=== PATIENT | male | born 1980 | race Caucasian/White ===

== ENCOUNTER → 2018-01-07 14:16 | Outpatient (REF) | payer MEDICARE, MEDICAID, SELFPAY ==
[2018-01-07 19:07] LABS: Glucose 73 mg/dL (70-100); TSH (W/Ref FT4) 0.68 uIU/mL (0.358-3.74)
== END ==
LOC: NCHCN 14:16
PROVIDERS: PCP Family Medicine; Visit Provider Family Medicine
DX: G71.11 Myotonic muscular dystrophy (principal); E78.5 Hyperlipidemia, unspecified
CPT/HCPCS: 82947; 84443

== ENCOUNTER 2018-11-11 18:27 | Inpatient (IN) | payer MEDICARE, MEDICAID, SELFPAY ==
[2018-11-11] VITALS (30 sets, daily range): BP systolic 102–132; BP diastolic 63–89; PULSE 61–127; RESP 16–20; TEMP 35.9–37.1; O2SAT 72–94
--- NOTE | 2018-11-11 19:02 | DI.CT_ITS ---
SYMPTOM/DIAGNOSIS: ABD PAIN LOWER ABD, TTP LLQ AND RLQ CT ABDOMEN AND PELVIS: Images were performed from the mid chest through the ischial tuberosities after oral and without IV contrast. There is a tiny pericardial effusion. There is mild cardiac enlargement. There is some dilatation of the distal esophagus as well as question of thickening of the wall of the distal esophagus. High density material is seen in the stomach. Shunt tubing is noted terminating in the upper abdomen. There is dilatation of the bowel with wall thickening seen greatest in the pelvis. No definite transition point is identified. The appendix appears normal. The colon is mainly decompressed. The findings are consistent with a partial small bowel obstruction. There is no evidence of free air or free fluid. Stones are seen in the gallbladder. There is no abnormal gallbladder distension. There is no biliary dilatation. The spleen, pancreas, adrenals and kidneys are unremarkable. The patient appears to be status post prostatectomy. The bladder is unremarkable. IMPRESSION: Dilated loops of bowel wall thickening suspicious for a bowel obstruction. There is no evidence of pneumatosis or perforation.
--- NOTE | 2018-11-11 19:04 | W.ED.GENAD ---
Discharge Plan Disposition Patient Disposition: [facility] INPATIENT Condition: Serious Discharge Details Chief Complaint: Abd Prob Clinical Impression: Small bowel obstruction Primary Care Provider: Sixto Tracy ED Provider: Mason Lucas Home Meds and New Rx's Prescriptions: No Action cholecalciferol (vitamin D3) 1,000 UNIT capsule 1,000 unit PO DAILY RF: 0 calcium carbonate [Tums] 200 MG tablet,chewable 2 - 4 tab CH Q4H PRNRF: 0 multivitamin 1 EACH capsule 1 ea PO DAILY RF: 0 aspirin [Ecotrin Low Strength] 81 MG tablet,delayed release (DR/EC) 81 mg PO DAILY RF: 0 polyethylene glycol 3350 17 GM powder in packet 17 gm PO DAILY RF: 0 Enema Disposable 133 ML enema 133 ml PA .EVERY 3 DAYS PRNRF: 0 docusate sodium [Colace] 100 MG capsule 100 mg PO BID PRNRF: 0 Medical Decision Making 19:58 --38-year-old male with multiple medical problems including history of myotonic dystrophy, prior bowel obstruction, presents with chief complaint of abdominal pain since yesterday. Patient is tender in his lower quadrants bilaterally. He had associated nausea. Consider acute bowel obstruction versus other acute surgical process. Plan to obtain stat CT imaging of the abdomen and pelvis. 9:00 --patient reassessed and noted to be hypoxic saturating in the upper 70s. Apparently he has had recent hypoxia (baseline 86-89%) and they are working on securing oxygen for home use. Low flow nasal cannula applied and pulse ox improved to mid 90. Will obtain cxr. CT of the abdomen pelvis interpreted by radiology: IMPRESSION: 1. Dilated thickened fluid-filled small bowel with enhancing wall consistent with small bowel obstruction. 2. Right intra-abdominal wall subcutaneous stent extending into the anterior mid abdomen with the tip located near the gallbladder fossa. 3. Bibasilar reticular markings consistent with atelectasis or developing infiltrate. 4. Cardiomegaly. Pericardial effusion. Prominent pulmonary vasculature. 5. Hiatal hernia with air-fluid level. 6. Tiny peripheral renal cysts. I spoke with the radiologist who noted small bowel obstruction. I called and spoke with Dr. Lakhani, on-call general surgery, who will admit. --Labs reviewed and nondiagnostic. Patient refusing NG tube. I reviewed risks and benefits with him and his mother and patient understands and refuses. Chest x-ray interpreted by radiology: Cardiomegaly, pulmonary vascular congestion, bibasilar markings consistent with atelectasis or developing infiltrate. No evidence for pleural effusion or pneumothorax. Patient does not have a cough. He does not have a fever. I do not suspect he has pneumonia. HPI General Mode of arrival: ambulatory. Date/Time Provider Initiated Documentation: 11/11/18 18:43. Limitations to Documentation: no limitations. Information obtained by: patient. HPI Narrative: 38-year-old male with multiple medical problems including myotonic dystrophy, paroxysmal atrial fibrillation, cardiomyopathy, hydrocephalus, bowel obstruction the past presents with chief complaint of abdominal pain. Abdominal pain started yesterday and has persisted. Pain is moderate. No modifiers. Pain is localized to his lower abdomen bilaterally. He has had associated nausea. Patient notes he had a normal bowel movement today. He has been urinating normally with no dysuria. Denies fever. Related Data Home Medications Medication Instructions Recorded Confirmed calcium carbonate [Tums] 2 - 4 tab CH Q4H PRN 09/18/12 11/11/18 multivitamin 1 ea PO DAILY 09/18/12 11/11/18 cholecalciferol (vitamin D3) 1,000 unit PO DAILY 10/14/12 11/11/18 Enema Disposable 133 ml PA .EVERY 3 DAYS PRN 04/15/14 11/11/18 aspirin [Ecotrin Low Strength] 81 mg PO DAILY 04/15/14 11/11/18 docusate sodium [Colace] 100 mg PO BID PRN 04/15/14 11/11/18 polyethylene glycol 3350 17 gm PO DAILY 04/15/14 11/11/18 Allergies Allergy/AdvReac Type Severity Reaction Status Date / Time promethazine Allergy MYOTONIC Unverified 11/11/18 18:52 DYSTROPY Benzodiazepines AdvReac Severe avoid d/t Unverified 11/11/18 18:52 myotonic dystrophy succinylcholine AdvReac Severe avoid d/y Unverified 11/11/18 18:52 myotonic dystrophy narcotics AdvReac Severe avoid d/t Uncoded 11/11/18 18:52 myotonic dystrophy General Stated Complaint: Abd Prob ARTEMIO: 3 Review of Systems Review of Systems All systems reviewed & are unremarkable except as noted in HPI and below Cardiovascular Denies chest pain Gastrointestinal Reports as per HPI, Denies melena and Denies hematochezia PFSH Medical History BASAL CELL Cardiomyopathy HYDROCEPHALUS Hyperlipidemia MYOTONIC DYSTROPHY Paroxysmal atrial fibrillation RUPTURED EARDRUM Right bundle branch block Social History Smoking/Tobacco Use Status: Never Alcohol Intake: never Drug use: Never Substance use type: does not use Do you feel safe in your relationship?: Yes Exam Const General: cooperative and no acute distress [facility] Head: normocephalic Mouth: mucous membranes dry Eyes Conjunctivae: normal conjunctivae Sclera: normal sclerae Neck Neck: trachea midline Resp Auscultation: clear to auscultation bilaterally, no rales, no rhonchi and no wheezes Cardio Jugular venous pressure: no JVD Rate: regular rate and not tachycardic Rhythm: abnormal rhythm GI Palpation: soft, not firm, no guarding, no masses, not rigid and tender in the LLQ and in the RLQ; with no rebound tenderness Auscultation: hypoactive bowel sounds Skin General skin exam: no rashes or lesions noted Neuro General: alert, awake and tone normal Extrem General: no edema Psych Mental Status: mental status grossly normal Speech and Movement: speech and movement normal Course Vital Signs Temperature 36.9 C 11/11/18 18:36 Pulse 74 11/11/18 18:36 Respiratory Rate 16 11/11/18 18:36 Blood Pressure 132/74 11/11/18 18:36 Pulse Oximetry 87 L 11/11/18 18:36 Temperature 36.9 C 11/11/18 18:36 Temperature Source Temporal Artery Scan 11/11/18 18:36 Pulse 74 11/11/18 18:36 Respiratory Rate 16 11/11/18 18:36 Respiratory Effort Non-Labored 11/11/18 18:52 Blood Pressure 132/74 11/11/18 18:36 Blood Pressure Position Sitting 11/11/18 18:36 Pulse Oximetry 87 L 11/11/18 18:36 Oxygen Delivery Method Room Air 11/11/18 18:36 Oxygen Flow Rate 0 11/11/18 18:36 Comment 11/11/18 18:36
[2018-11-11] MEDS: Normal Saline Flush 10 ML SYR IVP ×2 (19:14→22:19)
[2018-11-11] MEDS: Normal Saline 1,000 ML 1000 ML IV (19:14)
[2018-11-11 19:21] LABS: Abs Immature Grans 0.04 k/cumm (0.0-0.09); HGB 18.1 g/dL (13.5-17.5); Immature Grans % 0.3; Mean Corpuscular Hemoglobin 29.8 pg (27.0-33.0); Mean Corpuscular Volume 99.3 fL (80-95); Mean Platelet Volume 10.6 fL (8.0-11.0); Platelet Count 201 x1000/uL (130-400); RBC 6.08 m/cumm (4.50-6.00); RBC Distribution Width 18.1 % (11.8-14.1); White Blood Cell Count 12.09 k/cumm (4.4-10.8)
[2018-11-11 19:30] LABS: Lipase 37 U/L (73-393)
[2018-11-11 19:38] LABS: ALT 31 U/L (12-78); AST 16 U/L (15-37); Albumin 3.3 g/dL (3.4-5.0); Alkaline Phosphatase 83 U/L (46-116); Anion Gap 10.7 mmol/L (3-11); BUN 21 mg/dL (7-18); Bilirubin, Total 0.4 mg/dL (0.2-1.0); CO2 29.3 mmol/L (21.0-32.0); Calcium 9.7 mg/dL (8.5-10.1); Chloride 107 mmol/L (98-107); Glucose 120 mg/dL (70-100); Magnesium 2.3 mg/dL (1.8-2.4); Potassium 3.9 mmol/L (3.5-5.1); Sodium 147 mmol/L (136-145); Total Protein 8.3 g/dL (6.4-8.2)
[2018-11-11 19:43] LABS: Troponin I < 0.02 ng/mL (0.00-0.06)
--- NOTE | 2018-11-11 20:00 | ED.GENADUL_ITS ---
Discharge Plan Disposition Patient Disposition: [facility] INPATIENT Condition: Serious Discharge Details Chief Complaint: Abd Prob Clinical Impression: Small bowel obstruction Primary Care Provider: Sixto Tracy ED Provider: Mason Lucas Home Meds and New Rx's Prescriptions: No Action cholecalciferol (vitamin D3) 1,000 UNIT capsule 1,000 unit PO DAILY RF: 0 calcium carbonate [Tums] 200 MG tablet,chewable 2 - 4 tab CH Q4H PRNRF: 0 multivitamin 1 EACH capsule 1 ea PO DAILY RF: 0 aspirin [Ecotrin Low Strength] 81 MG tablet,delayed release (DR/EC) 81 mg PO DAILY RF: 0 polyethylene glycol 3350 17 GM powder in packet 17 gm PO DAILY RF: 0 Enema Disposable 133 ML enema 133 ml ID .EVERY 3 DAYS PRNRF: 0 docusate sodium [Colace] 100 MG capsule 100 mg PO BID PRNRF: 0 Medical Decision Making 19:58 --38-year-old male with multiple medical problems including history of myotonic dystrophy, prior bowel obstruction, presents with chief complaint of abdominal pain since yesterday. Patient is tender in his lower quadrants bilaterally. He had associated nausea. Consider acute bowel obstruction versus other acute surgical process. Plan to obtain stat CT imaging of the abdomen and pelvis. 9:00 --patient reassessed and noted to be hypoxic saturating in the upper 70s. Apparently he has had recent hypoxia (baseline 86-89%) and they are working on securing oxygen for home use. Low flow nasal cannula applied and pulse ox improved to mid 90. Will obtain cxr. CT of the abdomen pelvis interpreted by radiology: IMPRESSION: 1. Dilated thickened fluid-filled small bowel with enhancing wall consistent with small bowel obstruction. 2. Right intra-abdominal wall subcutaneous stent extending into the anterior mid abdomen with the tip located near the gallbladder fossa. 3. Bibasilar reticular markings consistent with atelectasis or developing infiltrate. 4. Cardiomegaly. Pericardial effusion. Prominent pulmonary vasculature. 5. Hiatal hernia with air-fluid level. 6. Tiny peripheral renal cysts. I spoke with the radiologist who noted small bowel obstruction. I called and spoke with Dr. Lakhani, on-call general surgery, who will admit. --Labs reviewed and nondiagnostic. Patient refusing NG tube. I reviewed risks and benefits with him and his mother and patient understands and refuses. Chest x-ray interpreted by radiology: Cardiomegaly, pulmonary vascular congestion, bibasilar markings consistent with atelectasis or developing infiltrate. No evidence for pleural effusion or pneumothorax. Patient does not have a cough. He does not have a fever. I do not suspect he has pneumonia. HPI General Mode of arrival: ambulatory . Date/Time Provider Initiated Documentation: 11/11/18 18:43 . Limitations to Documentation: no limitations . Information obtained by: patient . HPI Narrative: 38-year-old male with multiple medical problems including myotonic dystrophy, paroxysmal atrial fibrillation, cardiomyopathy, hydrocephalus, bowel obstruction the past presents with chief complaint of abdominal pain. Abdominal pain started yesterday and has persisted. Pain is moderate. No modifiers. Pain is localized to his lower abdomen bilaterally. He has had associated nausea. Patient notes he had a normal bowel movement today. He has been urinating normally with no dysuria. Denies fever. Related Data Home Medications Medication Instructions Recorded Confirmed calcium carbonate [Tums] 2 - 4 tab CH Q4H PRN 09/18/12 11/11/18 multivitamin 1 ea PO DAILY 09/18/12 11/11/18 cholecalciferol (vitamin D3) 1,000 unit PO DAILY 10/14/12 11/11/18 Enema Disposable 133 ml ID .EVERY 3 DAYS PRN 04/15/14 11/11/18 aspirin [Ecotrin Low Strength] 81 mg PO DAILY 04/15/14 11/11/18 docusate sodium [Colace] 100 mg PO BID PRN 04/15/14 11/11/18 polyethylene glycol 3350 17 gm PO DAILY 04/15/14 11/11/18 Allergies Allergy/AdvReac Type Severity Reaction Status Date / Time promethazine Allergy MYOTONIC Unverified 11/11/18 18:52 DYSTROPY Benzodiazepines AdvReac Severe avoid d/t Unverified 11/11/18 18:52 myotonic dystrophy succinylcholine AdvReac Severe avoid d/y Unverified 11/11/18 18:52 myotonic dystrophy narcotics AdvReac Severe avoid d/t Uncoded 11/11/18 18:52 myotonic dystrophy General Stated Complaint: Abd Prob ARTEMIO: 3 Review of Systems Review of Systems All systems reviewed & are unremarkable except as noted in HPI and below Cardiovascular Denies chest pain Gastrointestinal Reports as per HPI, Denies melena and Denies hematochezia PFSH Medical History BASAL CELL Cardiomyopathy HYDROCEPHALUS Hyperlipidemia MYOTONIC DYSTROPHY Paroxysmal atrial fibrillation RUPTURED EARDRUM Right bundle branch block Social History Smoking/Tobacco Use Status: Never Alcohol Intake: never Drug use: Never Substance use type: does not use Do you feel safe in your relationship?: Yes Exam Const General: cooperative and no acute distress [facility] Head: normocephalic Mouth: mucous membranes dry Eyes Conjunctivae: normal conjunctivae Sclera: normal sclerae Neck Neck: trachea midline Resp Auscultation: clear to auscultation bilaterally, no rales, no rhonchi and no wheezes Cardio Jugular venous pressure: no JVD Rate: regular rate and not tachycardic Rhythm: abnormal rhythm GI Palpation: soft, not firm, no guarding, no masses, not rigid and tender in the LLQ and in the RLQ; with no rebound tenderness Auscultation: hypoactive bowel sounds Skin General skin exam: no rashes or lesions noted Neuro General: alert, awake and tone normal Extrem General: no edema Psych Mental Status: mental status grossly normal Speech and Movement: speech and movement normal Course Vital Signs Temperature 36.9 C 11/11/18 18:36 Pulse 74 11/11/18 18:36 Respiratory Rate 16 11/11/18 18:36 Blood Pressure 132/74 11/11/18 18:36 Pulse Oximetry 87 L 11/11/18 18:36 Temperature 36.9 C 11/11/18 18:36 Temperature Source Temporal Artery Scan 11/11/18 18:36 Pulse 74 11/11/18 18:36 Respiratory Rate 16 11/11/18 18:36 Respiratory Effort Non-Labored 11/11/18 18:52 Blood Pressure 132/74 11/11/18 18:36 Blood Pressure Position Sitting 11/11/18 18:36 Pulse Oximetry 87 L 11/11/18 18:36 Oxygen Delivery Method Room Air 11/11/18 18:36 Oxygen Flow Rate 0 11/11/18 18:36 Comment 11/11/18 18:36
[2018-11-11 20:15] LABS: HCT 59.2 % (40.0-50.0)
[2018-11-11 20:17] LABS: Absolute Lymphocyte Count 0.85 k/cumm (1.2-3.4); Absolute Monocyte Count 0.97 k/cumm (0.11-0.7); Absolute Neutrophil Count 10.28 k/cumm (1.2-6.7); Anisocytosis 1+; Atypical Lymphocytes % 4; Polychromasia Present
[2018-11-11 20:18] LABS: Diff Comment Manual Differential
--- NOTE | 2018-11-11 20:54 | DI.VRAD_ITS ---
Addendum created by Katerina Downs MD on 11/11/2018 8:58:15 PM EDT THIS REPORT CONTAINS FINDINGS THAT MAY BE CRITICAL TO PATIENT CARE. The findings were verbally communicated via telephone conference with JAZZY MARCOS at 8:57 PM EDT on 11/11/2018. The findings were acknowledged and understood. Initial report created on 11/11/2018 8:54:04 PM EDT EXAM: CT Abdomen and Pelvis With Contrast EXAM DATE/TIME: 11/11/2018 7:04 PM CLINICAL HISTORY: 38 years old, male; Localized; Prior surgery; Surgery date: 6+ months; Surgery type: Shunt; Patient HX: Lower abdominal pain and tenderness, HX of myotonic dystrophy TECHNIQUE: Imaging protocol: Axial computed tomography images of the abdomen and pelvis with intravenous contrast. Coronal and sagittal reformatted images were created and reviewed. Radiation optimization: All CT scans at this facility use at least one of these dose optimization techniques: automated exposure control; mA and/or kV adjustment per patient size (includes targeted exams where dose is matched to clinical indication); or iterative reconstruction. Contrast material: OMNIPAQUE 350; Contrast volume: 100 ml; Contrast route: IV; COMPARISON: No relevant prior studies available. FINDINGS: Lungs: There is prominence of the pulmonary vasculature with increased bibasilar reticular markings consistent with atelectasis or developing infiltrate versus. Heart: The heart is enlarged diffusely with a pericardial effusion. Mediastinum: There is a small hiatal hernia with a small air-fluid level. ABDOMEN: Liver: Normal. No mass. Gallbladder and bile ducts: There is mild intrahepatic biliary duct prominence. The gallbladder is distended and contains a curvilinear calcification suspicious for gallstone. Pancreas: Normal. No ductal dilation. Spleen: Normal. No splenomegaly. Adrenals: Normal. No mass. Kidneys and ureters: Tiny peripheral hypodensities in the periphery of the kidneys consistent with renal cysts. Stomach and bowel: The stomach contains food products and radiopaque densities possibly representing residual cells. The small bowel is dilated with enhancing thickened folds. The appendix is unremarkable. The terminal ileum is normal. The right colon is fluid distended with thickened lorenz. Appendix: See Stomach And Bowel Finding. PELVIS: Bladder: Unremarkable as visualized. Reproductive: Multiple calcifications in the floor of the bladder and involving the base of the prostate. ABDOMEN and PELVIS: Intraperitoneal space: Normal. No free air. No significant fluid collection. Bones/joints: No acute fracture. No dislocation. Soft tissues: There is a subcutaneous stent in the soft tissues of the lower right chest which extends into the mid upper abdomen. The tip is seen near the gallbladder fossa. Vasculature: Normal. No abdominal aortic aneurysm. Lymph nodes: Normal. No enlarged lymph nodes. IMPRESSION: 1. Dilated thickened fluid-filled small bowel with enhancing wall consistent with small bowel obstruction. 2. Right intra-abdominal wall subcutaneous stent extending into the anterior mid abdomen with the tip located near the gallbladder fossa. 3. Bibasilar reticular markings consistent with atelectasis or developing infiltrate. 4. Cardiomegaly. Pericardial effusion. Prominent pulmonary vasculature. 5. Hiatal hernia with air-fluid level. 6. Tiny peripheral renal cysts. Dictated and Authenticated by: Katerina Downs MD. Ordering:KAMALA Cuevas MD
[2018-11-11] MEDS: Omnipaque 350 MG/ML 100 ML BTL IJ (21:00)
--- NOTE | 2018-11-11 21:03 | DI.RAD_ITS ---
SYMPTOM/DIAGNOSIS: HYPOXIA AP AND LATERAL CHEST: Comparison is made with 29 Mar 2017. The heart is enlarged, not significantly changed. [employer] shunt tubing is again noted. Both views are quite suboptimal due to poor pulmonary inflation. There are increased densities at both lung bases which could reflect atelectasis or infiltrates. There may also be tiny pleural effusions. IMPRESSION: Cardiomegaly. Bibasilar infiltrates vs atelectasis.
--- NOTE | 2018-11-11 21:18 | HPE_ITS ---
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 Pt is normally a very good eater. Would not eat lunch on 11/11 and was very tired. Has a hx of sbo. no unusual activities or recent illness. no fever/chills. He started to have abdom pain last evening and caregiver brought him to ED. CT reviewed. He would not let them place an NGT. Today he is feeling better- less pain. Chart reviewed. MPRESSION: 1. Dilated thickened fluid-filled small bowel with enhancing wall consistent with small bowel obstruction. 2. Right intra-abdominal wall subcutaneous stent extending into the anterior mid abdomen with the tip located near the gallbladder fossa. 3. Bibasilar reticular markings consistent with atelectasis or developing infiltrate. 4. Cardiomegaly. Pericardial effusion. Prominent pulmonary vasculature. 5. Hiatal hernia with air-fluid level. 6. Tiny peripheral renal cysts. Severe restrictive lung disease. Clinical correlation is recommended. When this study was compared to previous ones from 10/11/12 and 01/20/13, the patient's FVC had an overall 320 cc. decline, FEV-1 had a 310 cc. decline. Diffusion capacity is fairly stable. Total lung capacity had a 300 cc. decline in the four years. One of the alarcon points for differential diagnosis for this constellation of findings is parenchymal restrictive lung disease versus respiratory neuromuscular weakness. If the latter is suspected clinically, proceeding with MEP, MIP, and MVV maneuvers may be considered. PROBLEM LIST: Acute Problems: 1. Vomiting - ileus versus distal small bowel obstruction. 2. Hypoventilation secondary to muscle weakness. Chronic Problems: 1. Myotonic dystrophy. 2. Velopalatine insufficiency. 3. Bilateral chronic tympanic membrane perforations. 4. Cardiomyopathy. a. EF 50%, mild global hypokinesis on echocardiogram. 5. Right bundle-branch block. 6. First-degree AV block. 7. Bilateral cataracts. 8. History of hydrocephalus. 9. Past surgical history: a. MOLDING ASSOCIATE shunt. b. PE tubes. c. Lysis of adhesions. Review of Systems Review of Systems Unobtainable due to mental condition and Unobtainable due to (taken from chart and caregiver ) Respiratory Comments: pt is suppose to be on home O2, but he won't wear it. He does have a Hx of some aspiration issues. Caregiver hasnt noticed him coughing or gaggin w/ eating or drinking. Gastrointestinal Comments: unclear when last BM was. Has had laparotomy in past. 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 ASSOCIATE (ventriculoperitoneal) shunt status (Acute) Gallstones (Acute) Small bowel obstruction (Acute) BASAL CELL Cardiomyopathy HYDROCEPHALUS Hyperlipidemia MYOTONIC DYSTROPHY Paroxysmal atrial fibrillation RUPTURED EARDRUM Right bundle branch block Social History Smoking/Tobacco Use Status: Never Alcohol Intake: never Drug use: Never Substance use type: does not use Do you feel safe in your relationship?: Yes Meds Home Medications Medication Instructions Recorded Confirmed Type calcium carbonate [Tums] 2 - 4 tab CH Q4H PRN 09/18/12 11/11/18 History multivitamin 1 ea PO DAILY 09/18/12 11/11/18 History cholecalciferol (vitamin D3) 1,000 unit PO DAILY 10/14/12 11/11/18 History Enema Disposable 133 ml OR .EVERY 3 DAYS PRN 04/15/14 11/11/18 History aspirin [Ecotrin Low Strength] 81 mg PO DAILY 04/15/14 11/11/18 History docusate sodium [Colace] 100 mg PO BID PRN 04/15/14 11/11/18 History polyethylene glycol 3350 17 gm PO DAILY 04/15/14 11/11/18 History Allergies Allergy/AdvReac Type Severity Reaction Status Date / Time promethazine Allergy MYOTONIC Unverified 11/11/18 18:52 DYSTROPY Benzodiazepines AdvReac Severe avoid d/t Unverified 11/11/18 18:52 myotonic dystrophy succinylcholine AdvReac Severe avoid d/y Unverified 11/11/18 18:52 myotonic dystrophy narcotics AdvReac Severe avoid d/t Uncoded 11/11/18 18:52 myotonic dystrophy Exam [facility] Head: normal to inspection and other (scarring noted ) Ears: hearing grossly normal bilaterally General nose exam: external nose normal Face and sinus: normal facial exam Mouth: oral mucosae normal Teeth and gingiva: fair dentition Other: micronathia Eyes Eyelids: eyelid abnormality Conjunctivae: conjunctivae normal Sclera: sclerae normal Chest Chest: normal inspection of the chest Resp Effort & Inspection: normal respiratory effort and able to speak in complete sentences Auscultation: clear to auscultation bilaterally Other: low O2- chronic pt suppose to be on home O2, but won't wear it GI Inspection: distended and scar Auscultation: high-pitched sounds Other: no peritonitis post sx changes noted no hernias Extrem General: normal to inspection, full ROM and no clubbing, cyanosis or edema Results Labs : 11/12/18 07:50 11/12/18 06:07 Laboratory Results - last 24 hr 11/11/18 11/11/18 11/11/18 19:10 19:10 19:10 WBC 12.09 H RBC 6.08 H Hgb 18.1 H Hct 59.2 H* MCV 99.3 H MCH 29.8 MCHC 30.0 L RDW 18.1 H Plt Count 201 MPV 10.6 Immature Gran % 0.3 Neutrophils % 85.0 Band Neutrophils % 0.0 Lymphocytes % 3.0 Atypical Lymphs % 4 Monocytes % 8.0 Eosinophils % 0.0 Basophils % 0.0 Absolute Neutrophils 10.28 H Absolute Lymphocytes 0.85 L Absolute Monocytes 0.97 H Absolute Eosinophils 0.00 Absolute Basophils 0.00 Differential Comment Manual differential RBC Morphology See below Polychromasia Present Anisocytosis 1+ Sodium 147 H Potassium 3.9 Chloride 107 Carbon Dioxide 29.3 Anion Gap 10.7 BUN 21 H Creatinine 0.90 Estimated GFR/1.73 m2 >= 60.00 Glucose 120 H Calcium 9.7 Magnesium 2.3 Total Bilirubin 0.4 AST 16 ALT 31 Alkaline Phosphatase 83 Troponin I < 0.02 Total Protein 8.3 H Albumin 3.3 L Lipase 37 L Last Vital Signs Temp 37.0 C 11/11/18 20:29 Pulse 61 11/11/18 20:29 Resp 20 11/11/18 20:29 BP 131/89 11/11/18 20:29 Pulse Ox 94 L 11/11/18 20:33
--- NOTE | 2018-11-11 21:32 | DI.VRAD_ITS ---
EXAM: XR Chest, 2 Views EXAM DATE/TIME: 11/11/2018 9:03 PM CLINICAL HISTORY: 38 years old, male; Signs and symptoms; Other: Hypoxia TECHNIQUE: Imaging protocol: XR of the chest, 2 views. COMPARISON: CR CHEST 2 VIEWS PA,LAT 07/08/2016 10:15 FINDINGS: Tubes, catheters and devices: There is a catheter overlying the right chest extending to the midline of the upper abdomen. Lungs: There is enlargement of the central pulmonary vessels with redistribution to the apices. The lung volumes are low. There is increased bibasilar markings consistent with atelectasis or developing infiltrate. There is no evidence for pleural effusion on the CT or chest x-ray. Pleural space: There is no pneumothorax. Heart/Mediastinum: The heart is enlarged. On CT there was a pericardial effusion. Bones/joints: Unremarkable. IMPRESSION: Cardiomegaly. Pulmonary vascular congestion. Bibasilar markings consistent with atelectasis or developing infiltrate. No evidence for pleural effusion or pneumothorax. Dictated and Authenticated by: Katerina Downs MD. Ordering:KAMALA Cuevas MD
[2018-11-11] MEDS: Lactated Ringers 1,000 ML 125 ML IV (22:19)
--- NOTE | 2018-11-11 22:52 | NUR.NOTE ---
Nursing Note: Pt requesting nasal cannula to be removed at this time I cant sleep like this. Pt educated on low oxygen levels during stay, pt requested it to be removed. Nasal cannula removed at this time while nursing in room for a trial on room air- desating down to 83%- Pt educated that MD would like pt to stay at or above 89%- pt allowed nasal cannula to be put back on. O2 currently @ 3L/min- O2 returned back to 88% quickly w/a few deep breathes.
[2018-11-12] MEDS: cefTRIAXone 2 GM/50 ML BAG IVPB (01:05)
[2018-11-12] MEDS: Lactated Ringers 1,000 ML 125 ML IV ×3 (03:49→19:11)
[2018-11-12 07:16] LABS: Anion Gap 6.9 mmol/L (3-11); BUN 13 mg/dL (7-18); CO2 28.1 mmol/L (21.0-32.0); CREATININE 0.61 mg/dL (0.70-1.30); Calcium 8.7 mg/dL (8.5-10.1); Chloride 109 mmol/L (98-107); Glucose 103 mg/dL (70-100); Magnesium 2.2 mg/dL (1.8-2.4); Sodium 144 mmol/L (136-145)
--- NOTE | 2018-11-12 07:27 | PGE_ITS ---
Documented by User: CARLIE Alamo 11/12/18 07:27 Date of Service Date of service: 11/12/18 Time of Service: 07:24 Assessment and Plan (1) Small bowel obstruction: Current visit: Yes Status: Acute Patient refused NG tube. DIET- Continue NPO GI- hypoactive bowel sounds, (-) BM, (-) Flatus PAIN- Improved over night. ACTIVITY- Encouraged ambulation later this morning. ABD XRAY pending Subjective Interval history since last seen: Arrived with Mr. Mcfarland sleeping comfortably and his healthcare administration intern at the bedside. Denies any nausea, vomiting or abdominal pain. Denies passing any flatus. No BM. He reports that he is feeling better compared to last night, however expresses that he is very tired today. Exam Const General: cooperative and comfortable Orientation: alert and oriented x3 Resp Effort & Inspection: normal respiratory effort, no audible wheezes and no cough GI Inspection: normal to inspection and obesity Palpation: soft, no guarding and nontender Auscultation: hypoactive bowel sounds Objective Objective Clinical Data: Abnormal lab results 11/11/18 11/11/18 11/11/18 Range/Units 19:10 19:10 19:10 WBC 12.09 H (4.4-10.8) k/cumm RBC 6.08 H (4.50-6.00) m/cumm Hgb 18.1 H (13.5-17.5) g/dL Hct 59.2 H* (40.0-50.0) % MCV 99.3 H (80-95) fL MCHC 30.0 L (32.0-36.0) g/dL RDW 18.1 H (11.8-14.1) % Absolute Neutrophils 10.28 H (1.2-6.7) k/cumm Absolute Lymphocytes 0.85 L (1.2-3.4) k/cumm Absolute Monocytes 0.97 H (0.11-0.7) k/cumm Sodium 147 H (136-145) mmol/L Chloride (98-107) mmol/L BUN 21 H (7-18) mg/dL Creatinine (0.70-1.30) mg/dL Glucose 120 H (70-100) mg/dL Total Protein 8.3 H (6.4-8.2) g/dL Albumin 3.3 L (3.4-5.0) g/dL Lipase 37 L (73-393) U/L 11/12/18 Range/Units 06:07 WBC (4.4-10.8) k/cumm RBC (4.50-6.00) m/cumm Hgb (13.5-17.5) g/dL Hct (40.0-50.0) % MCV (80-95) fL MCHC (32.0-36.0) g/dL RDW (11.8-14.1) % Absolute Neutrophils (1.2-6.7) k/cumm Absolute Lymphocytes (1.2-3.4) k/cumm Absolute Monocytes (0.11-0.7) k/cumm Sodium (136-145) mmol/L Chloride 109 H (98-107) mmol/L BUN (7-18) mg/dL Creatinine 0.61 L (0.70-1.30) mg/dL Glucose 103 H (70-100) mg/dL Total Protein (6.4-8.2) g/dL Albumin (3.4-5.0) g/dL Lipase (73-393) U/L Vital Signs Temperature 35.9 C L 11/11/18 23:45 Temperature Source Tympanic 11/11/18 23:44 Pulse 90 11/11/18 23:45 Respiratory Rate 20 11/11/18 23:45 Respiratory Effort 11/11/18 23:45 Respiratory Depth Normal 11/11/18 23:45 Respiratory Pattern Normal 11/11/18 23:45 Blood Pressure 111/71 11/11/18 23:45 Blood Pressure Mean 93 11/11/18 23:16 Blood Pressure Position Sitting 11/11/18 18:36 Pulse Oximetry 91 L 11/11/18 23:45 Oxygen Delivery Method Nasal Cannula 11/11/18 23:45 Oxygen Flow Rate 3 11/11/18 23:45 Comment 11/11/18 18:36 Intake & Output 11/11/18 11/12/18 11/12/18 18:59 06:59 18:59 Intake Total 2049 Balance 2049 Weight 81.193 kg 81.193 kg Intake: IV 2049 Other: Urine Appearance Clear Comment pt refused Kruger catheter, voiding adequate amount Laboratory Results WBC 12.09 k/cumm (4.4-10.8) H 11/11/18 19:10 RBC 6.08 m/cumm (4.50-6.00) H 11/11/18 19:10 Hgb 18.1 g/dL (13.5-17.5) H 11/11/18 19:10 Hct 59.2 % (40.0-50.0) H* 11/11/18 19:10 MCV 99.3 fL (80-95) H 11/11/18 19:10 MCH 29.8 pg (27.0-33.0) 11/11/18 19:10 MCHC 30.0 g/dL (32.0-36.0) L 11/11/18 19:10 RDW 18.1 % (11.8-14.1) H 11/11/18 19:10 Plt Count 201 x1000/uL (130-400) 11/11/18 19:10 MPV 10.6 fL (8.0-11.0) 11/11/18 19:10 Immature Gran % 0.3 11/11/18 19:10 Neutrophils % 85.0 11/11/18 19:10 Band Neutrophils % 0.0 % 11/11/18 19:10 Lymphocytes % 3.0 11/11/18 19:10 Atypical Lymphs % 4 11/11/18 19:10 Monocytes % 8.0 11/11/18 19:10 Eosinophils % 0.0 11/11/18 19:10 Basophils % 0.0 11/11/18 19:10 Absolute Neutrophils 10.28 k/cumm (1.2-6.7) H 11/11/18 19:10 Absolute Lymphocytes 0.85 k/cumm (1.2-3.4) L 11/11/18 19:10 Absolute Monocytes 0.97 k/cumm (0.11-0.7) H 11/11/18 19:10 Absolute Eosinophils 0.00 k/cumm (0.0-0.7) 11/11/18 19:10 Absolute Basophils 0.00 k/cumm (0.0-0.2) 11/11/18 19:10 Differential Comment Manual differential 11/11/18 19:10 RBC Morphology See below 11/11/18 19:10 Polychromasia Present 11/11/18 19:10 Anisocytosis 1+ 11/11/18 19:10 Sodium 144 mmol/L (136-145) 11/12/18 06:07 Potassium 4.0 mmol/L (3.5-5.1) 11/12/18 06:07 Chloride 109 mmol/L (98-107) H 11/12/18 06:07 Carbon Dioxide 28.1 mmol/L (21.0-32.0) 11/12/18 06:07 Anion Gap 6.9 mmol/L (3-11) 11/12/18 06:07 BUN 13 mg/dL (7-18) D 11/12/18 06:07 Creatinine 0.61 mg/dL (0.70-1.30) L 11/12/18 06:07 Estimated GFR/1.73 m2 >= 60.00 (mL/min/1.73m2) 11/12/18 06:07 Glucose 103 mg/dL (70-100) H 11/12/18 06:07 Calcium 8.7 mg/dL (8.5-10.1) 11/12/18 06:07 Magnesium 2.2 mg/dL (1.8-2.4) 11/12/18 06:07 Total Bilirubin 0.4 mg/dL (0.2-1.0) 11/11/18 19:10 AST 16 U/L (15-37) 11/11/18 19:10 ALT 31 U/L (12-78) 11/11/18 19:10 Alkaline Phosphatase 83 U/L (46-116) 11/11/18 19:10 Troponin I < 0.02 ng/mL (0.00-0.06) 11/11/18 19:10 Total Protein 8.3 g/dL (6.4-8.2) H 11/11/18 19:10 Albumin 3.3 g/dL (3.4-5.0) L 11/11/18 19:10 Lipase 37 U/L (73-393) L 11/11/18 19:10 Documented by User: Amna M Lesvia, 11/12/18 18:51 Assessment and Plan (1) Small bowel obstruction: Current visit: Yes Status: Acute pt seen and examined this evening He did fall this afternoon while walking. RN says he's BP was stable and he had no hypotension or arrhythmia. He has a mild abrasion on his LLE. no swelling. no s/s of fracture. He has been up walking since. He denies n/v. no fever/chills. says he has passed some gas. listening to his abdomen- BS are still high pitched and tinkley. no peritonitis post sx changes noted. no pain at this point.
[2018-11-12 08:03] LABS: Platelet Count 189 x1000/uL (130-400)
--- NOTE | 2018-11-12 08:20 | PDOC.CMIN ---
Care Management Initial Assess REASON FOR HOSPITALIZATION:: SBO PAST MEDICAL HISTORY/PAST SURGICAL HISTORY:: Basal Cell, Cardiomyopathy, Hydrocephalus, Hyperlipidemia, Myotonic Dystrophy, Paroxysmal atrial fibrillation, right bundle branch block, ruptured eardrum PREVIOUS FUNCTIONAL STATUS/SOCIAL/FAMILY SUPPORTS:: Julio Cesar resides in [place], [place] in a shared living long-term through [facility]. He reports his home provider's name is Teresa. His guardian is Nhi Huitron and his skilled nursing case manager is Alba. Julio Cesar reports he is on disability and does not work, he enjoys discussing the zodiac with this commercial lines underwriter and appears well engaged. CURRENT FUNCTIONAL STATUS:: Julio Cesar was sitting up in the chair, pleasant in interaction and forthcoming in information. ADVANCE DIRECTIVES:: Guardian Nhi Huitron. Has patient been provided with information about the portal?: Yes Did the patient sign up for the portal?: No CODE STATUS:: Full Code INSURANCE COVERAGE / FINANCIAL ISSUES:: Medicaid. Medicare CURRENT HOME/COMMUNITY SERVICES/EQUIPMENT:: IDDS services through [place] Supports-case management, home provider, guardianship. PRIMARY CARE PHYSICIAN:: Dr. Tracy POTENTIAL DISCHARGE NEEDS:: Follow up appointment with PCP. PATIENT/FAMILY EDUCATION NEEDS:: Review discharge instructions, discuss Ask Me Three. ANTICIPATED BARRIERS TO DISCHARGE:: None identified. TRANSPORTATION:: Via private vehicle. PLAN:: Per Surgical HEATING ENGINEER: Julio Cesar has refused an NG tube, continues to be NPO on IV ABX and medications. He is being encouraged to ambulate, awaiting abdominal xray results. CM will continue to follow.
--- NOTE | 2018-11-12 08:27 | INITIAL_ITS ---
Care Management Initial Assess REASON FOR HOSPITALIZATION:: SBO PAST MEDICAL HISTORY/PAST SURGICAL HISTORY:: Basal Cell, Cardiomyopathy, Hydrocephalus, Hyperlipidemia, Myotonic Dystrophy, Paroxysmal atrial fibrillation, right bundle branch block, ruptured eardrum PREVIOUS FUNCTIONAL STATUS/SOCIAL/FAMILY SUPPORTS:: Julio Cesar resides in [place], [place] in a shared living halfway through [facility]. He reports his home provider's name is Teresa. His guardian is Nhi Huitron and his rn field case manager is Alba. Julio Cesar reports he is on disability and does not work, he enjoys discussing the zodiac with this health underwriter and appears well engaged. CURRENT FUNCTIONAL STATUS:: Julio Cesar was sitting up in the chair, pleasant in interaction and forthcoming in information. ADVANCE DIRECTIVES:: Guardian Nhi Huitron. Has patient been provided with information about the portal?: Yes Did the patient sign up for the portal?: No CODE STATUS:: Full Code INSURANCE COVERAGE / FINANCIAL ISSUES:: Medicaid. Medicare CURRENT HOME/COMMUNITY SERVICES/EQUIPMENT:: IDDS services through [place] Supports-case management, home provider, guardianship. PRIMARY CARE PHYSICIAN:: Dr. Tracy POTENTIAL DISCHARGE NEEDS:: Follow up appointment with PCP. PATIENT/FAMILY EDUCATION NEEDS:: Review discharge instructions, discuss Ask Me Three. ANTICIPATED BARRIERS TO DISCHARGE:: None identified. TRANSPORTATION:: Via private vehicle. PLAN:: Per Surgical TRACK REPAIR SUPERVISOR: Julio Cesar has refused an NG tube, continues to be NPO on IV ABX and medications. He is being encouraged to ambulate, awaiting abdominal xray results. CM will continue to follow.
[2018-11-12 09:00] VITALS: BP 108/66; PULSE 72; RESP 18; TEMP 36.3; O2SAT 89
--- NOTE | 2018-11-12 09:36 | DI.RAD_ITS ---
SYMPTOM/DIAGNOSIS: INFILTRATE ON CT SCA PA AND LATERAL CHEST: Comparison is made with November 13 The lungs are somewhat better inflated on today's exam however still remain suboptimally inflated. Cardiomegaly and CARPET TECHNICIAN shunt tubing are again noted. There is a linear density at the right lung base. The lung bases appear clear when compared with the previous exam. IMPRESSION: Improvement in bibasilar densities.
--- NOTE | 2018-11-12 09:38 | DI.RAD_ITS ---
SYMPTOM/DIAGNOSIS: SBO FLAT AND UPRIGHT ABDOMEN: Comparison is made with CT of the abdomen and pelvis of the previous day. There is continued dilatation of multiple loops of small bowel as well as air fluid levels. No free air is seen. The lung bases are grossly clear. There is contrast in the urinary bladder from the previous CT. IMPRESSION: Persistent dilated small bowel.
[2018-11-12 10:00] VITALS: O2SAT 83
[2018-11-12] MEDS: ACETAMINOPHEN 1,000 MG/100 ML BTL 400 MG IVPB (10:42)
[2018-11-12 13:00] LABS: Lactate-non-spesis 0.7 mmol/l (0.6-1.4)
[2018-11-12 13:49] VITALS: BP 104/74; PULSE 70; RESP 18; TEMP 36.7; O2SAT 87
[2018-11-12 15:08] VITALS: BP 101/70; PULSE 107; RESP 18; TEMP 36.7; O2SAT 88
--- NOTE | 2018-11-12 15:39 | CHAPLAIN ---
Julio Cesar was sitting up in bed, waiting for his pain medicine to kick in, according to his caregiver who had spent the night with him. Julio Cesar seemed to be being patient. His caregiver said she has known him for 20 years, and she plans to stay here with him. She said she massaged his hand earlier in an attept to sooth him
[2018-11-12 19:14] VITALS: BP 118/76; PULSE 80; RESP 14; TEMP 36; O2SAT 89
[2018-11-13] VITALS (11 sets, daily range): BP systolic 120–133; BP diastolic 79–85; PULSE 77–88; RESP 2–18; TEMP 36.5–36.8; O2SAT 78–98
[2018-11-13] MEDS: cefTRIAXone 2 GM/50 ML BAG IVPB ×2 (00:03→23:30)
[2018-11-13] MEDS: Normal Saline Flush 10 ML SYR IVP ×2 (00:04→10:05)
[2018-11-13] MEDS: Lactated Ringers 1,000 ML 125 ML IV ×3 (03:14→17:40)
[2018-11-13] MEDS: ACETAMINOPHEN 1,000 MG/100 ML BTL 400 MG IVPB ×2 (03:50→17:40)
[2018-11-13 07:29] LABS: Anion Gap 5.6 mmol/L (3-11); BUN 8 mg/dL (7-18); CO2 30.4 mmol/L (21.0-32.0); CREATININE 0.72 mg/dL (0.70-1.30); Calcium 8.7 mg/dL (8.5-10.1); Chloride 109 mmol/L (98-107); Glucose 92 mg/dL (70-100); Magnesium 2.1 mg/dL (1.8-2.4); Potassium 3.6 mmol/L (3.5-5.1); Sodium 145 mmol/L (136-145)
--- NOTE | 2018-11-13 07:29 | W.PM.PROGNOT ---
Documented by User: CARLIE Alamo 11/13/18 07:34 Date of Service Date of service: 11/13/18 Time of Service: 07:29 Assessment and Plan (1) Small bowel obstruction: Current visit: Yes Status: Acute Hypoactive bowel sounds. ABD is less tender on palpation today. Mr. Mcfarland is very tired, responds verbally to questions appropriately, however did not open his eyes while conversing with this provider. DIET- Continue NPO ACT- As tolerated. Encourage amb. and sitting in the chair throughout the day. ABD XRAY- Pending PAIN- Denies abdominal pain ? Of BM, nsg was not able to confirm this. Subjective Interval history since last seen: Patient reports he is very tired. He denies any abdominal pain, nausea or vomiting. He reports having a BM, however nsg was not able to confirm this. Exam Const General: cooperative, healthy appearing and comfortable Orientation: alert and awake Resp Effort & Inspection: normal respiratory effort, no audible wheezes and no cough GI Inspection: normal to inspection and obesity Palpation: soft, no guarding and nontender Auscultation: hypoactive bowel sounds Objective Objective Clinical Data: Vital Signs Temperature 36 C L 11/12/18 19:14 Temperature Source Tympanic 11/12/18 19:14 Pulse 80 11/12/18 19:14 Pulse Rhythm Regular 11/12/18 23:06 Respiratory Rate 14 11/12/18 19:14 Respiratory Effort 11/12/18 23:06 Respiratory Depth Normal 11/12/18 23:06 Respiratory Pattern Normal 11/12/18 23:06 Blood Pressure 118/76 11/12/18 19:14 Blood Pressure Mean 93 11/11/18 23:16 Blood Pressure Position Sitting 11/11/18 18:36 Pulse Oximetry 89 L 11/12/18 19:14 Oxygen Delivery Method Room Air 11/12/18 19:14 Oxygen Flow Rate 0 11/12/18 19:14 Pain Level 5 11/13/18 03:50 Comment 11/12/18 19:14 Intake & Output 11/12/18 11/13/18 11/13/18 18:59 06:59 18:59 Intake Total 1070.833 / 3110.416 2039.583 / 3110.416 Balance 1070.833 / 3110.416 2039.583 / 3110.416 Intake: IV 1070.833 / 3110.416 2039.583 / 3110.416 Other: Urine Color Yellow Urine Appearance Clear Stool Characteristics Liquid Brown Voiding Methods Toilet Laboratory Results WBC 12.09 k/cumm (4.4-10.8) H 11/11/18 19:10 RBC 6.08 m/cumm (4.50-6.00) H 11/11/18 19:10 Hgb 18.1 g/dL (13.5-17.5) H 11/11/18 19:10 Hct 59.2 % (40.0-50.0) H* 11/11/18 19:10 MCV 99.3 fL (80-95) H 11/11/18 19:10 MCH 29.8 pg (27.0-33.0) 11/11/18 19:10 MCHC 30.0 g/dL (32.0-36.0) L 11/11/18 19:10 RDW 18.1 % (11.8-14.1) H 11/11/18 19:10 Plt Count 189 x1000/uL (130-400) 11/12/18 07:50 MPV 10.6 fL (8.0-11.0) 11/11/18 19:10 Immature Gran % 0.3 11/11/18 19:10 Neutrophils % 85.0 11/11/18 19:10 Band Neutrophils % 0.0 % 11/11/18 19:10 Lymphocytes % 3.0 11/11/18 19:10 Atypical Lymphs % 4 11/11/18 19:10 Monocytes % 8.0 11/11/18 19:10 Eosinophils % 0.0 11/11/18 19:10 Basophils % 0.0 11/11/18 19:10 Absolute Neutrophils 10.28 k/cumm (1.2-6.7) H 11/11/18 19:10 Absolute Lymphocytes 0.85 k/cumm (1.2-3.4) L 11/11/18 19:10 Absolute Monocytes 0.97 k/cumm (0.11-0.7) H 11/11/18 19:10 Absolute Eosinophils 0.00 k/cumm (0.0-0.7) 11/11/18 19:10 Absolute Basophils 0.00 k/cumm (0.0-0.2) 11/11/18 19:10 Differential Comment Manual differential 11/11/18 19:10 RBC Morphology See below 11/11/18 19:10 Polychromasia Present 11/11/18 19:10 Anisocytosis 1+ 11/11/18 19:10 Sodium 144 mmol/L (136-145) 11/12/18 06:07 Potassium 4.0 mmol/L (3.5-5.1) 11/12/18 06:07 Chloride 109 mmol/L (98-107) H 11/12/18 06:07 Carbon Dioxide 28.1 mmol/L (21.0-32.0) 11/12/18 06:07 Anion Gap 6.9 mmol/L (3-11) 11/12/18 06:07 BUN 13 mg/dL (7-18) D 11/12/18 06:07 Creatinine 0.61 mg/dL (0.70-1.30) L 11/12/18 06:07 Estimated GFR/1.73 m2 >= 60.00 (mL/min/1.73m2) 11/12/18 06:07 Glucose 103 mg/dL (70-100) H 11/12/18 06:07 Lactate 0.7 mmol/l (0.6-1.4) 11/12/18 12:50 Calcium 8.7 mg/dL (8.5-10.1) 11/12/18 06:07 Magnesium 2.2 mg/dL (1.8-2.4) 11/12/18 06:07 Total Bilirubin 0.4 mg/dL (0.2-1.0) 11/11/18 19:10 AST 16 U/L (15-37) 11/11/18 19:10 ALT 31 U/L (12-78) 11/11/18 19:10 Alkaline Phosphatase 83 U/L (46-116) 11/11/18 19:10 Troponin I < 0.02 ng/mL (0.00-0.06) 11/11/18 19:10 Total Protein 8.3 g/dL (6.4-8.2) H 11/11/18 19:10 Albumin 3.3 g/dL (3.4-5.0) L 11/11/18 19:10 Lipase 37 U/L (73-393) L 11/11/18 19:10 Documented by User: Amna Pierre Lesvia, DO 11/13/18 15:23 Assessment and Plan (1) Restrictive lung disease: Current visit: Yes Status: Acute pt seen adn examined. Pt resp status is unchanged. RN's noted late am that pt O2 needs where increasing. However, pt seems to be at his baseline. L; CTA b/l CXR today was neg. Pt is suppose to be on 3L O2 at home- but he will not wear the O2. pt is more alert this afternoon. He has been up walking. No BM and not pssing gas per RN. Pt doesn't know if he was passing gas or not. Pt refuses NGT. I asked pt if he was hungry adn he has repeatedly says no. But today he says he won't eat w/ the IV in place. I explained to him that we do need hi to try and eat before we talk the IV out. He has no pain and belly seems soft and less distended this afternoon. He has really good BS as well. If xray is improved- will try cl liq. If xray not improved- than I thin he is trending towards requiring surgical intervention. He is a poor sx candidate for [facility] secondary to pulm status. He has severe restrictive lung dx and is high risk for prolonged mechanical ventilation/pneumonia. He is also does not comply w/ cares- leaving NGT in place/wearing O2, etc. His neurologists and pulmonolgists are both at [facility]
--- NOTE | 2018-11-13 07:35 | PGE_ITS ---
Documented by User: CARLIE Alamo 11/13/18 07:34 Date of Service Date of service: 11/13/18 Time of Service: 07:29 Assessment and Plan (1) Small bowel obstruction: Current visit: Yes Status: Acute Hypoactive bowel sounds. ABD is less tender on palpation today. Mr. Mcfarland is very tired, responds verbally to questions appropriately, however did not op en his eyes while conversing with this provider. DIET- Continue NPO ACT- As tolerated. Encourage amb. and sitting in the chair throughout the day. ABD XRAY- Pending PAIN- Denies abdominal pain ? Of BM, nsg was not able to confirm this. Subjective Interval history since last seen: Patient reports he is very tired. He denies any abdominal pain, nausea or vomiting. He reports having a BM, however nsg was not able to confirm this. Exam Const General: cooperative, healthy appearing and comfortable Orientation: alert and awake Resp Effort & Inspection: normal respiratory effort, no audible wheezes and no cough GI Inspection: normal to inspection and obesity Palpation: soft, no guarding and nontender Auscultation: hypoactive bowel sounds Objective Objective Clinical Data: Vital Signs Temperature 36 C L 11/12/18 19:14 Temperature Source Tympanic 11/12/18 19:14 Pulse 80 11/12/18 19:14 Pulse Rhythm Regular 11/12/18 23:06 Respiratory Rate 14 11/12/18 19:14 Respiratory Effort 11/12/18 23:06 Respiratory Depth Normal 11/12/18 23:06 Respiratory Pattern Normal 11/12/18 23:06 Blood Pressure 118/76 11/12/18 19:14 Blood Pressure Mean 93 11/11/18 23:16 Blood Pressure Position Sitting 11/11/18 18:36 Pulse Oximetry 89 L 11/12/18 19:14 Oxygen Delivery Method Room Air 11/12/18 19:14 Oxygen Flow Rate 0 11/12/18 19:14 Pain Level 5 11/13/18 03:50 Comment 11/12/18 19:14 Intake & Output 11/12/18 11/13/18 11/13/18 18:59 06:59 18:59 Intake Total 1070.833 / 3110.416 2039.583 / 3110.416 Balance 1070.833 / 3110.416 9.583 / 3110.416 Intake: IV 1070.833 / 3110.416 2039.583 / 0.416 Other: Urine Color Yellow Urine Appearance Clear Stool Characteristics Liquid Brown Voiding Methods Toilet Laboratory Results WBC 12.09 k/cumm (4.4-10.8) H 11/11/18 19:10 RBC 6.08 m/cumm (4.50-6.00) H 11/11/18 19:10 Hgb 18.1 g/dL (13.5-17.5) H 11/11/18 19:10 Hct 59.2 % (40.0-50.0) H* 11/11/18 19:10 MCV 99.3 fL (80-95) H 11/11/18 19:10 MCH 29.8 pg (27.0-33.0) 11/11/18 19:10 MCHC 30.0 g/dL (32.0-36.0) L 11/11/18 19:10 RDW 18.1 % (11.8-14.1) H 11/11/18 19:10 Plt Count 189 x1000/uL (130-400) 11/12/18 07:50 MPV 10.6 fL (8.0-11.0) 11/11/18 19:10 Immature Gran % 0.3 11/11/18 19:10 Neutrophils % 85.0 11/11/18 19:10 Band Neutrophils % 0.0 % 11/11/18 19:10 Lymphocytes % 3.0 11/11/18 19:10 Atypical Lymphs % 4 11/11/18 19:10 Monocytes % 8.0 11/11/18 19:10 Eosinophils % 0.0 11/11/18 19:10 Basophils % 0.0 11/11/18 19:10 Absolute Neutrophils 10.28 k/cumm (1.2-6.7) H 11/11/18 19:10 Absolute Lymphocytes 0.85 k/cumm (1.2-3.4) L 11/11/18 19:10 Absolute Monocytes 0.97 k/cumm (0.11-0.7) H 11/11/18 19:10 Absolute Eosinophils 0.00 k/cumm (0.0-0.7) 11/11/18 19:10 Absolute Basophils 0.00 k/cumm (0.0-0.2) 11/11/18 19:10 Differential Comment Manual differential 11/11/18 19:10 RBC Morphology See below 11/11/18 19:10 Polychromasia Present 11/11/18 19:10 Anisocytosis 1+ 11/11/18 19:10 Sodium 144 mmol/L (136-145) 11/12/18 06:07 Potassium 4.0 mmol/L (3.5-5.1) 11/12/18 06:07 Chloride 109 mmol/L (98-107) H 11/12/18 06:07 Carbon Dioxide 28.1 mmol/L (21.0-32.0) 11/12/18 06:07 Anion Gap 6.9 mmol/L (3-11) 11/12/18 06:07 BUN 13 mg/dL (7-18) D 11/12/18 06:07 Creatinine 0.61 mg/dL (0.70-1.30) L 11/12/18 06:07 Estimated GFR/1.73 m2 >= 60.00 (mL/min/1.73m2) 11/12/18 06:07 Glucose 103 mg/dL (70-100) H 11/12/18 06:07 Lactate 0.7 mmol/l (0.6-1.4) 11/12/18 12:50 Calcium 8.7 mg/dL (8.5-10.1) 11/12/18 06:07 Magnesium 2.2 mg/dL (1.8-2.4) 11/12/18 06:07 Total Bilirubin 0.4 mg/dL (0.2-1.0) 11/11/18 19:10 AST 16 U/L (15-37) 11/11/18 19:10 ALT 31 U/L (12-78) 11/11/18 19:10 Alkaline Phosphatase 83 U/L (46-116) 11/11/18 19:10 Troponin I < 0.02 ng/mL (0.00-0.06) 11/11/18 19:10 Total Protein 8.3 g/dL (6.4-8.2) H 11/11/18 19:10 Albumin 3.3 g/dL (3.4-5.0) L 11/11/18 19:10 Lipase 37 U/L (73-393) L 11/11/18 19:10 Documented by User: Amna Pierre Lesvia, DO 11/13/18 15:23 Assessment and Plan (1) Restrictive lung disease: Current visit: Yes Status: Acute pt seen adn examined. Pt resp status is unchanged. RN's noted late am that pt O2 needs where increasing. However, pt seems to be at his baseline. L; CTA b/l CXR today was neg. Pt is suppose to be on 3L O2 at home- but he will not wear the O2. pt is more alert this afternoon. He has been up walking. No BM and not pssing gas per RN. Pt doesn't know if he was passing gas or not. Pt refuses NGT. I asked pt if he was hungry adn he has repeatedly says no. But today he says he won't eat w/ the IV in place. I explained to him that we do need hi to try and eat before we talk the IV out. He has no pain and belly seems soft and less distended this afternoon. He has really good BS as well. If xray is improved- will try cl liq. If xray not improved- than I thin he is trending towards requiring surgical intervention. He is a poor sx candidate for [facility] secondary to pulm status. He has severe restrictive lung dx and is high risk for prolonged mechanical ventilation/pneumonia. He is also does not comply w/ cares- leaving NGT in place/wearing O2, etc. His neurologists and pulmonolgists are both at [facility]
[2018-11-13 08:23] LABS: Lactic Acid (UVM) 2.1 mmol/L (<2.1)
[2018-11-13 08:46] LABS: Prolactin 22.7 ng/ml (2.1-17.7)
--- NOTE | 2018-11-13 08:46 | DI.RAD_ITS ---
SYMPTOM/DIAGNOSIS: SMALL BOWEL OBSTRUCTION FLAT AND UPRIGHT ABDOMEN: There is no evidence of free air. When compared with the previous examination of 11/12, there has been some improvement in the extent of small bowel distension. Shunt tubing ends in the midline in the upper abdomen. IMPRESSION: Interval improvement is demonstrated with diminished distension of small bowel loops. PA CHEST: This exam was done in error. No infiltrate is identified. There is no apparent pleural effusion. The heart is unchanged in size. Shunt tubing is projected over the right hemithorax.
[2018-11-13] MEDS: Albuterol/Ipratropium 3 ML UPD VIAL UPD ×3 (11:49→23:30)
--- NOTE | 2018-11-13 12:32 | PDOC.CMPRO ---
Care Management Progress Note S/O: Julio Cesar was sitting up in his chair, he reported not wanting surgical intervention and reported he had enough surgeries in his life and was not interested in having more. He reported his home provider, Nelida would be returning shortly. CM continues to follow. A: 38 year old male admitted to [facility] 11/11/18 for SBO P: Julio Cesar will continue to be closely monitored for SBO, he remains NPO on IVF and medications as well as oxygen via mask as he could not tolerate nasal cannula. RAMÓN continues to follow.
--- NOTE | 2018-11-13 15:55 | DI.RAD_ITS ---
SYMPTOM/DIAGNOSIS: SBO KUB AND UPRIGHT: When compared with previous images a diminished quantity of ga is noted in the small bowel. There is also small bowel air fluid levels and air fluid levels in the colon. There is no evidence of free air. SUMMARY: Interval improvement is demonstrated.
--- NOTE | 2018-11-13 16:45 | W.PM.PROGNOT ---
Date of Service Date of service: 11/13/18 Time of Service: 16:45 Assessment and Plan (1) Restrictive lung disease: Current visit: Yes Status: Acute (2) IMPROVEMENT NURSE (ventriculoperitoneal) shunt status: Current visit: Yes Status: Acute (3) Small bowel obstruction: Current visit: Yes Status: Acute I did review the pt repeat film. There is defn air at the recto/sigmoid colon/ within the lg bowel. RN notes low O2 sats and lethargy. Pt was up walking today. Pt affect appears the same to me as it was yest I did his care w/ his guardian: Dominic Henry [phone] His belly is nice and soft and he has good BS. I am encouraged that he may be able to work it out and not require surgery. He is an extremely poor surgical candidate secondary to his lung dx and would require transfer to tertiary center. also- [facility] and [facility] are on bed-divert and only taking crisis pt. Pt is hemodynamically stable at this time. cont conservative medical managemtn. 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 Objective Objective Clinical Data: Abnormal lab results 11/11/18 11/13/18 Range/Units 19:10 06:30 Chloride 109 H (98-107) mmol/L Lactic Acid 2.1 H* (<2.1) mmol/L Prolactin 22.7 H (2.1-17.7) ng/mL Vital Signs Temperature 36.6 C 11/13/18 11:51 Temperature Source Tympanic 11/13/18 11:51 Pulse 88 11/13/18 11:51 Pulse Rhythm Regular 11/13/18 08:40 Respiratory Rate 17 11/13/18 11:51 Respiratory Effort 11/13/18 08:40 Respiratory Depth Normal 11/13/18 08:40 Respiratory Pattern Normal 11/13/18 08:40 Blood Pressure 120/79 11/13/18 11:51 Blood Pressure Mean 93 11/11/18 23:16 Blood Pressure Position Sitting 11/11/18 18:36 Pulse Oximetry 83 L 11/13/18 11:51 Oxygen Delivery Method Room Air 11/13/18 11:51 Oxygen Flow Rate 0 11/13/18 11:51 Pain Level 5 11/13/18 03:50 Comment 11/13/18 11:51 Intake & Output 11/12/18 11/13/18 11/13/18 23:59 11:59 23:59 Intake Total 950 / 3070.833 Balance 950 / 3070.833 Intake: IV 950 / 3069. Other: Urine Color Yellow Yellow Yellow Stool Characteristics Liquid Brown Voiding Methods Toilet Toilet Toilet Laboratory Results WBC 12.09 k/cumm (4.4-10.8) H 11/11/18 19:10 RBC 6.08 m/cumm (4.50-6.00) H 11/11/18 19:10 Hgb 18.1 g/dL (13.5-17.5) H 11/11/18 19:10 Hct 59.2 % (40.0-50.0) H* 11/11/18 19:10 MCV 99.3 fL (80-95) H 11/11/18 19:10 MCH 29.8 pg (27.0-33.0) 11/11/18 19:10 MCHC 30.0 g/dL (32.0-36.0) L 11/11/18 19:10 RDW 18.1 % (11.8-14.1) H 11/11/18 19:10 Plt Count 189 x1000/uL (130-400) 11/12/18 07:50 MPV 10.6 fL (8.0-11.0) 11/11/18 19:10 Immature Gran % 0.3 11/11/18 19:10 Neutrophils % 85.0 11/11/18 19:10 Band Neutrophils % 0.0 % 11/11/18 19:10 Lymphocytes % 3.0 11/11/18 19:10 Atypical Lymphs % 4 11/11/18 19:10 Monocytes % 8.0 11/11/18 19:10 Eosinophils % 0.0 11/11/18 19:10 Basophils % 0.0 11/11/18 19:10 Absolute Neutrophils 10.28 k/cumm (1.2-6.7) H 11/11/18 19:10 Absolute Lymphocytes 0.85 k/cumm (1.2-3.4) L 11/11/18 19:10 Absolute Monocytes 0.97 k/cumm (0.11-0.7) H 11/11/18 19:10 Absolute Eosinophils 0.00 k/cumm (0.0-0.7) 11/11/18 19:10 Absolute Basophils 0.00 k/cumm (0.0-0.2) 11/11/18 19:10 Differential Comment Manual differential 11/11/18 19:10 RBC Morphology See below 11/11/18 19:10 Polychromasia Present 11/11/18 19:10 Anisocytosis 1+ 11/11/18 19:10 Sodium 145 mmol/L (136-145) 11/13/18 06:30 Potassium 3.6 mmol/L (3.5-5.1) 11/13/18 06:30 Chloride 109 mmol/L (98-107) H 11/13/18 06:30 Carbon Dioxide 30.4 mmol/L (21.0-32.0) 11/13/18 06:30 Anion Gap 5.6 mmol/L (3-11) 11/13/18 06:30 BUN 8 mg/dL (7-18) 11/13/18 06:30 Creatinine 0.72 mg/dL (0.70-1.30) 11/13/18 06:30 Estimated GFR/1.73 m2 >= 60.00 (mL/min/1.73m2) 11/13/18 06:30 Glucose 92 mg/dL (70-100) 11/13/18 06:30 Lactic Acid 2.1 mmol/L (<2.1) H* 11/11/18 19:10 Lactate 0.7 mmol/l (0.6-1.4) 11/12/18 12:50 Calcium 8.7 mg/dL (8.5-10.1) 11/13/18 06:30 Magnesium 2.1 mg/dL (1.8-2.4) 11/13/18 06:30 Total Bilirubin 0.4 mg/dL (0.2-1.0) 11/11/18 19:10 AST 16 U/L (15-37) 11/11/18 19:10 ALT 31 U/L (12-78) 11/11/18 19:10 Alkaline Phosphatase 83 U/L (46-116) 11/11/18 19:10 Troponin I < 0.02 ng/mL (0.00-0.06) 11/11/18 19:10 Total Protein 8.3 g/dL (6.4-8.2) H 11/11/18 19:10 Albumin 3.3 g/dL (3.4-5.0) L 11/11/18 19:10 Lipase 37 U/L (73-393) L 11/11/18 19:10 Prolactin 22.7 ng/mL (2.1-17.7) H 11/11/18 19:10
[2018-11-14] VITALS (9 sets, daily range): BP systolic 113–130; BP diastolic 76–83; PULSE 69–89; RESP 1–24; TEMP 36.1–36.7; O2SAT 75–97
[2018-11-14] MEDS: Lactated Ringers 1,000 ML 125 ML IV (02:16)
[2018-11-14] MEDS: ACETAMINOPHEN 1,000 MG/100 ML BTL 400 MG IVPB (03:18)
[2018-11-14] MEDS: Albuterol/Ipratropium 3 ML UPD VIAL UPD ×3 (06:38→23:11)
--- NOTE | 2018-11-14 07:36 | DI.RAD_ITS ---
SYMPTOM/DIAGNOSIS: SBO KUB AND UPRIGHT: When compared with the previous examination of 11/13 further interval improvement is noted. There is a small quantity of scattered gas in the small bowel and gas and fecal material are noted in the colon. There is no evidence of free air. Again noted is a ventriculoperitoneal shunt projected over the inferior portion of the chest and upper abdomen. SUMMARY: Further interval improvement is demonstrated.
--- NOTE | 2018-11-14 09:13 | DI.VRAD_ITS ---
EXAM: XR Abdomen, 2 Views EXAM DATE/TIME: 11/14/2018 12:01 AM CLINICAL HISTORY: 38 years old, male; Abdominal pain; Generalized; Patient HX: Sbo TECHNIQUE: Imaging protocol: Frontal view of the abdomen/pelvis with upright view of the abdomen. COMPARISON: CR XR abdomen flat upright 11/13/2018 3:46 PM FINDINGS: Gastrointestinal tract: Decreased air-fluid levels throughout the bowel suggesting improving small bowel obstruction. Intraperitoneal space: No pneumoperitoneum. Bones/joints: Unremarkable for age. IMPRESSION: 1. Decreased air-fluid levels throughout the bowel suggesting improving small bowel obstruction. 2. No pneumoperitoneum. Dictated and Authenticated by: Donavon Live MD. Ordering:INNA Woo MD
[2018-11-14] MEDS: Magnesium Citrate 300 ML BTL PO (09:33)
--- NOTE | 2018-11-14 13:12 | W.PM.PROGNOT ---
Date of Service Date of service: 11/14/18 Time of Service: 08:30 Assessment and Plan (1) Restrictive lung disease: Current visit: Yes Status: Acute (2) Small bowel obstruction: Current visit: Yes Status: Acute Xray is definitely improved this am will try cl liquids and see how he does Subjective Interval history since last seen: Pt is doing well. no headaches. No CP or SOB. no productive cough. no dysuria. no leg pain or swelling. most of the info is taken from Rn's as pt is not reliable historian. + BM overnight No worsening of resp status. Exam Const General: cooperative, healthy appearing, comfortable, no acute distress, well developed and well groomed Nutritional Appearance: average body habitus and well nourished Orientation: alert, awake and oriented x3 HENMT Head: normal to inspection, normocephalic and atraumatic Ears: hearing grossly normal bilaterally and external ears normal General nose exam: external nose normal Face and sinus: normal facial exam and sinuses nontender Mouth: oral mucosae normal, lip normal, tongue normal and moist mucous membranes Teeth and gingiva: dentition normal Eyes General: appearance normal, both eyes and all related structures Conjunctivae: conjunctivae normal Sclera: sclerae normal Pupils: PERRL Neck Neck: normal visual inspection and full ROM Chest Chest: normal inspection of the chest Resp Effort & Inspection: normal respiratory effort, able to speak in complete sentences, no cough, no nasal flaring, not tachypneic and no use of accessory muscles Auscultation: clear to auscultation bilaterally, no rales, no rhonchi and no wheezes Other: pt still has low O2 sats. otherwise lungs are clear adn no productive cough Cardio Jugular venous pressure: no JVD Rate: regular rate Rhythm: regular rhythm GI Inspection: normal to inspection, no edema and non-distended Palpation: soft, nontender and No ascites Auscultation: normal bowel sounds Skin General skin exam: no rashes or lesions noted Trauma: no lacerations or abrasions Neuro General: alert, oriented x3, oriented, gait normal, moves all extremities, no focal motor deficits and CN's II-XI intact bilaterally Cognition: normal cognition Speech: speech normal Gait: normal gait Motor: muscle tone normal throughout Extrem General: normal to inspection, full ROM and no clubbing, cyanosis or edema Psych Appearance: grossly normal and well kempt Mental Status: mental status grossly normal Speech and Movement: speech and movement normal Affect: normal affect Objective Objective Clinical Data: Vital Signs Temperature 36.1 C L 11/14/18 08:12 Temperature Source Tympanic 11/14/18 08:12 Pulse 70 11/14/18 08:12 Pulse Rhythm Regular 11/14/18 05:39 Respiratory Rate 24 11/14/18 08:12 Respiratory Effort 11/14/18 05:39 Respiratory Depth Normal 11/14/18 05:39 Respiratory Pattern Normal 11/14/18 05:39 Blood Pressure 129/83 11/14/18 08:12 Blood Pressure Mean 93 11/11/18 23:16 Blood Pressure Position Sitting 11/11/18 18:36 Pulse Oximetry 90 L 11/14/18 09:30 Oxygen Delivery Method OxyMask 11/14/18 09:30 Oxygen Flow Rate 4 11/14/18 09:30 Pain Level 5 11/13/18 17:40 Comment 11/14/18 08:12 Intake & Output 11/13/18 11/14/18 11/14/18 23:59 11:59 23:59 Intake Total 1022.917 / 2993.750 2290 / 2290 Balance 1022.917 / 2993.750 2290 / 2290 Intake: IV 1022.917 / 2993.750 2049 / 2049 Oral 240 / 240 Other: Urine Color Yellow Yellow Urine Appearance Clear Clear Urine Odor Normal Comment Urine not measured, voiding into toilet and flushing. Stool Size Moderate Small Large Stool Characteristics Formed Hard Soft Black Black Green Voiding Methods Toilet Toilet Laboratory Results WBC 12.09 k/cumm (4.4-10.8) H 11/11/18 19:10 RBC 6.08 m/cumm (4.50-6.00) H 11/11/18 19:10 Hgb 18.1 g/dL (13.5-17.5) H 11/11/18 19:10 Hct 59.2 % (40.0-50.0) H* 11/11/18 19:10 MCV 99.3 fL (80-95) H 11/11/18 19:10 MCH 29.8 pg (27.0-33.0) 11/11/18 19:10 MCHC 30.0 g/dL (32.0-36.0) L 11/11/18 19:10 RDW 18.1 % (11.8-14.1) H 11/11/18 19:10 Plt Count 189 x1000/uL (130-400) 11/12/18 07:50 MPV 10.6 fL (8.0-11.0) 11/11/18 19:10 Immature Gran % 0.3 11/11/18 19:10 Neutrophils % 85.0 11/11/18 19:10 Band Neutrophils % 0.0 % 11/11/18 19:10 Lymphocytes % 3.0 11/11/18 19:10 Atypical Lymphs % 4 11/11/18 19:10 Monocytes % 8.0 11/11/18 19:10 Eosinophils % 0.0 11/11/18 19:10 Basophils % 0.0 11/11/18 19:10 Absolute Neutrophils 10.28 k/cumm (1.2-6.7) H 11/11/18 19:10 Absolute Lymphocytes 0.85 k/cumm (1.2-3.4) L 11/11/18 19:10 Absolute Monocytes 0.97 k/cumm (0.11-0.7) H 11/11/18 19:10 Absolute Eosinophils 0.00 k/cumm (0.0-0.7) 11/11/18 19:10 Absolute Basophils 0.00 k/cumm (0.0-0.2) 11/11/18 19:10 Differential Comment Manual differential 11/11/18 19:10 RBC Morphology See below 11/11/18 19:10 Polychromasia Present 11/11/18 19:10 Anisocytosis 1+ 11/11/18 19:10 Sodium 145 mmol/L (136-145) 11/13/18 06:30 Potassium 3.6 mmol/L (3.5-5.1) 11/13/18 06:30 Chloride 109 mmol/L (98-107) H 11/13/18 06:30 Carbon Dioxide 30.4 mmol/L (21.0-32.0) 11/13/18 06:30 Anion Gap 5.6 mmol/L (3-11) 11/13/18 06:30 BUN 8 mg/dL (7-18) 11/13/18 06:30 Creatinine 0.72 mg/dL (0.70-1.30) 11/13/18 06:30 Estimated GFR/1.73 m2 >= 60.00 (mL/min/1.73m2) 11/13/18 06:30 Glucose 92 mg/dL (70-100) 11/13/18 06:30 Lactic Acid 2.1 mmol/L (<2.1) H* 11/11/18 19:10 Lactate 0.7 mmol/l (0.6-1.4) 11/12/18 12:50 Calcium 8.7 mg/dL (8.5-10.1) 11/13/18 06:30 Magnesium 2.1 mg/dL (1.8-2.4) 11/13/18 06:30 Total Bilirubin 0.4 mg/dL (0.2-1.0) 11/11/18 19:10 AST 16 U/L (15-37) 11/11/18 19:10 ALT 31 U/L (12-78) 11/11/18 19:10 Alkaline Phosphatase 83 U/L (46-116) 11/11/18 19:10 Troponin I < 0.02 ng/mL (0.00-0.06) 11/11/18 19:10 Total Protein 8.3 g/dL (6.4-8.2) H 11/11/18 19:10 Albumin 3.3 g/dL (3.4-5.0) L 11/11/18 19:10 Lipase 37 U/L (73-393) L 11/11/18 19:10 Prolactin 22.7 ng/mL (2.1-17.7) H 11/11/18 19:10
--- NOTE | 2018-11-14 15:34 | PDOC.CMPRO ---
Care Management Progress Note S/O: Julio Cesar remains pleasant in interaction. CM spoke with his CM Alba Salguero who reported she would email his guardian, Nhi to inform of discharge planning and case review provided by this senior writer. CM continues to follow. A: 38 year old male admitted to [facility] 11/11/18 for SBO P: Julio Cesar will continue to be closely monitored, per RN he had a significant BM and his diet has been advanced for continued monitoring of toleration. He will return home with his home provider, Teresa when ready per MD. He will transport via private vehicle with Teresa; no additional supports anticipated at this time.
--- NOTE | 2018-11-14 16:09 | CMPROGNOTE_ITS ---
Care Management Progress Note S/O: Julio Cesar remains pleasant in interaction. CM spoke with his CM Alba Salguero who reported she would email his guardian, Nhi to inform of discharge planning and case review provided by this rfp writer. CM continues to follow. A: 38 year old male admitted to [facility] 11/11/18 for SBO P: Julio Cesar will continue to be closely monitored, per RN he had a significant BM and his diet has been advanced for continued monitoring of toleration. He will return home with his home provider, Teresa when ready per MD. He will transport via private vehicle with Teresa; no additional supports anticipated at this time.
[2018-11-15] VITALS (7 sets, daily range): BP systolic 124–127; BP diastolic 76–80; PULSE 72–79; RESP 1–20; TEMP 36.4–36.6; O2SAT 67–95
[2018-11-15] MEDS: Albuterol/Ipratropium 3 ML UPD VIAL UPD ×2 (05:10→11:36)
--- NOTE | 2018-11-15 08:09 | PDOC.CMPRO ---
- If Service Date Differs Date of service: 11/15/18 Time of Service: 08:09 Care Management Progress Note S/O: A: 38 year old male admitted to [facility] 11/11/18 for SBO P: Julio Cesar will continue to be closely monitored, per RN he had a significant BM and his diet has been advanced for continued monitoring of toleration. He will return home with his home provider, Teresa when ready per MD. He will transport via private vehicle with Teresa; no additional supports anticipated at this time.
--- NOTE | 2018-11-15 08:31 | W.PM.DS.N ---
Date of service: 11/15/18 Time of Service: 08:31 DS: Diagnosis Discharge Diagnosis (1) Restrictive lung disease: Status: Acute (2) Small bowel obstruction: Status: Acute Discharge Plan Disposition Patient Disposition: HOME Condition: Serious Discharge Details Reason For Visit: SBO Admit Date/Time: 11/11/18 21:20 Admit Provider: Amna Lakhani Attending Provider: Amna Lakhani Primary Care Provider: Demarc[facility]ara [facility] Hospital Course Hospital Course: 38 y/o male was admitted through the ER on 11/11/18 for small bowel obstruction. He refused an NG tube and was treated with analgesics and NPO. On 11/14/18 He started having improved bowel sounds and 2 large BMs. He is tolerating a soft diet and his abdominal pain has resolved. While in the hospital he was having low 02 sats, which improved with supplemental oxygen. Which he has at home and uses as needed. D/C home with his caregiver. Follow up with PCP as needed. Home Meds and New Rx's Prescriptions: Continued cholecalciferol (vitamin D3) 1,000 UNIT capsule 1,000 unit PO DAILY RF: 0 calcium carbonate [Tums] 200 MG tablet,chewable 2 - 4 tab CH Q4H PRNRF: 0 multivitamin 1 EACH capsule 1 ea PO DAILY RF: 0 aspirin [Ecotrin Low Strength] 81 MG tablet,delayed release (DR/EC) 81 mg PO DAILY RF: 0 polyethylene glycol 3350 17 GM powder in packet 17 gm PO DAILY RF: 0 Enema Disposable 133 ML enema 133 ml [place] .EVERY 3 DAYS PRNRF: 0 docusate sodium [Colace] 100 MG capsule 100 mg PO BID PRNRF: 0 Discharge Instructions Instructions: Soft Diet (GEN) Activity:: Activity as Tolerated Equipment/Supplies:: No Equipment Needed Diet:: Normal Diet Exam Const General: cooperative and comfortable Orientation: alert and oriented x3 Resp Effort & Inspection: normal respiratory effort, no audible wheezes and no cough Auscultation: clear to auscultation bilaterally Cardio Heart Sounds: murmur GI Inspection: normal to inspection and non-distended Palpation: soft, no guarding and nontender Auscultation: normal bowel sounds DS: Data Vitals/I&O Vitals and I&O: Vital Signs Temperature 36.6 C 11/15/18 04:58 Temperature Source Skin 11/15/18 04:58 Pulse 72 11/15/18 05:10 Pulse Rhythm Regular 11/15/18 04:58 Respiratory Rate 16 11/15/18 05:10 Respiratory Effort 11/15/18 04:58 Respiratory Depth Normal 11/15/18 04:58 Respiratory Pattern Normal 11/15/18 04:58 Blood Pressure 124/80 11/15/18 04:58 Blood Pressure Mean 93 11/11/18 23:16 Blood Pressure Position Sitting 11/11/18 18:36 Pulse Oximetry 95 11/15/18 06:10 Oxygen Delivery Method OxyMask 11/15/18 06:10 Oxygen Flow Rate 2 11/15/18 06:10 Pain Level 0 11/15/18 04:58 Comment 11/15/18 04:58 Intake & Output 11/14/18 11/15/18 11/15/18 18:59 06:59 18:59 Intake Total 1480 / 1480 0 / 0 Balance 1480 / 1480 0 / 0 Intake: IV 1000 / 1000 Oral 480 / 480 0 / 0 Other: Urine Color Yellow Urine Appearance Clear Comment 0515 ASKED PT IF HE NEED TO VOID AND PT SAID NO. 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
--- NOTE | 2018-11-15 08:34 | DSE_ITS ---
Date of service: 11/15/18 Time of Service: 08:31 DS: Diagnosis Discharge Diagnosis (1) Restrictive lung disease: Status: Acute (2) Small bowel obstruction: Status: Acute Discharge Plan Disposition Patient Disposition: HOME Condition: Serious Discharge Details Reason For Visit: SBO Admit Date/Time: 11/11/18 21:20 Admit Provider: Amna Lakhani Attending Provider: Amna Lakhani Primary Care Provider: [facility] Hospital Course: 38 y/o male was admitted through the ER on 11/11/18 for small bowel obstruction. He refused an NG tube and was treated with analgesics and NPO. On 11/14/18 He started having improved bowel sounds and 2 large BMs. He is tolerating a soft diet and his abdominal pain has resolved. While in the hospital he was having low 02 sats, which improved with supplemental oxygen. Which he has at home and uses as needed. D/C home with his caregiver. Follow up with PCP as needed. Home Meds and New Rx's Prescriptions: Continued cholecalciferol (vitamin D3) 1,000 UNIT capsule 1,000 unit PO DAILY RF: 0 calcium carbonate [Tums] 200 MG tablet,chewable 2 - 4 tab CH Q4H PRNRF: 0 multivitamin 1 EACH capsule 1 ea PO DAILY RF: 0 aspirin [Ecotrin Low Strength] 81 MG tablet,delayed release (DR/EC) 81 mg PO DAILY RF: 0 polyethylene glycol 3350 17 GM powder in packet 17 gm PO DAILY RF: 0 Enema Disposable 133 ML enema 133 ml [place] .EVERY 3 DAYS PRNRF: 0 docusate sodium [Colace] 100 MG capsule 100 mg PO BID PRNRF: 0 Discharge Instructions Instructions: Soft Diet (GEN) Activity:: Activity as Tolerated Equipment/Supplies:: No Equipment Needed Diet:: Normal Diet Exam Const General: cooperative and comfortable Orientation: alert and oriented x3 Resp Effort & Inspection: normal respiratory effort, no audible wheezes and no cough Auscultation: clear to auscultation bilaterally Cardio Heart Sounds: murmur GI Inspection: normal to inspection and non-distended Palpation: soft, no guarding and nontender Auscultation: normal bowel sounds DS: Data Vitals/I&O Vitals and I&O: Vital Signs Temperature 36.6 C 11/15/18 04:58 Temperature Source Skin 11/15/18 04:58 Pulse 72 11/15/18 05:10 Pulse Rhythm Regular 11/15/18 04:58 Respiratory Rate 16 11/15/18 05:10 Respiratory Effort 11/15/18 04:58 Respiratory Depth Normal 11/15/18 04:58 Respiratory Pattern Normal 11/15/18 04:58 Blood Pressure 124/80 11/15/18 04:58 Blood Pressure Mean 93 11/11/18 23:16 Blood Pressure Position Sitting 11/11/18 18:36 Pulse Oximetry 95 11/15/18 06:10 Oxygen Delivery Method OxyMask 11/15/18 06:10 Oxygen Flow Rate 2 11/15/18 06:10 Pain Level 0 11/15/18 04:58 Comment 11/15/18 04:58 Intake & Output 11/14/18 11/15/18 11/15/18 18:59 06:59 18:59 Intake Total 1480 / 1480 0 / 0 Balance 1480 / 1480 0 / 0 Intake: IV 1000 / 1000 Oral 480 / 480 0 / 0 Other: Urine Color Yellow Urine Appearance Clear Comment 0515 ASKED PT IF HE NEED TO VOID AND PT SAID NO. 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
--- NOTE | 2018-11-15 15:25 | PDOC.CMDIS ---
- If Service Date Differs Date of service: 11/15/18 Time of Service: 15:25 LACE Index Scoring Tool - Questions: Length of Stay (in days): 4 - 6 Acuity (Admit via E.D.?): Yes E.D. Visits: 1 - Answers: Total Score: 8 Risk of Readmission: Low Risk Care Management Discharge Reason for Hospitalization: SBO Discharge Plan: Julio Cesar will return home with his home provider, Teresa. He will transport via private vehicle with Teresa. He will have home oxygen; no additional supports needed at this time. Julio Cesar will follow up with his PCP and discharge plan of care. Patient/Family Education Needs: Discharge plan, limitations, follow up plan of care, Ask Me Three. Services Needed at Discharge: Oxygen Therapy
== END 2018-11-15 13:06 | disposition home or self-care (01) | DRG 390 ==
LOC: ER 22:57 → MS 11-12 09:36
PROVIDERS: Admitting Provider Surgery; Emergency Provider Student in an Organized Health Care Education/Training Program; PCP Family Medicine; Visit Provider Surgery
DX: K56.609 Unspecified intestinal obstruction, unspecified as to partial versus complete obstruction (principal); J98.4 Other disorders of lung; R09.02 Hypoxemia; Z98.2 Presence of cerebrospinal fluid drainage device; K80.20 Calculus of gallbladder without cholecystitis without obstruction; R53.83 Other fatigue; G71.11 Myotonic muscular dystrophy
CPT/HCPCS: 36415; 80048; 80053; 83690; 87040; 96360; 96361; 99222; 99223; 99231; 99232; 99238; 99285; 71046; 74019; 74177; 83605; 83735; 84146; 84484; 85025; 85049; 93005; 93010; 99284; J0131; J3490; J7620

== ENCOUNTER 2019-04-30 12:24 | Emergency (ER) | payer MEDICARE, MEDICAID, SELFPAY ==
[2019-04-30 12:28] VITALS: BP 148/89; PULSE 108; RESP 16; TEMP 36.7; O2SAT 82
--- NOTE | 2019-04-30 12:34 | ED.GENADUL_ITS ---
Discharge Plan Disposition Patient Disposition: HOME Condition: Stable Discharge Details Chief Complaint: Orthopedic Clinical Impression: Fracture of lateral malleolus of right ankle Primary Care Provider: Sixto Tracy ED Provider: Terrell Urbano Home Meds and New Rx's Prescriptions: Continued cholecalciferol (vitamin D3) 1,000 UNIT capsule 1,000 unit PO DAILY RF: 0 calcium carbonate [Tums] 200 MG tablet,chewable 2 - 4 tab CH Q4H PRNRF: 0 multivitamin 1 EACH capsule 1 ea PO DAILY RF: 0 aspirin [Ecotrin Low Strength] 81 MG tablet,delayed release (DR/EC) 81 mg PO DAILY RF: 0 polyethylene glycol 3350 17 GM powder in packet 17 gm PO DAILY RF: 0 Enema Disposable 133 ML enema 133 ml [place] .EVERY 3 DAYS PRNRF: 0 docusate sodium [Colace] 100 MG capsule 100 mg PO BID PRNRF: 0 Discharge Instructions Instructions: Ankle Fracture (ED) Additional Instructions: call orthopedics tomorrow to arrange for an appointment Referrals: Darian He MD [ [facility] STAFF PHYSICIAN] - Medical Decision Making 39 yo male states he tripped yesterday walking and rolled his right ankle, denies hitting his head or loc. HAs lateral malleolus pain with swelling, intact sensation and 2+ dp/pt pulses. No pain over metatarsals and no knee pain or tenderness. Will xray to eval for fx xray shows nondisplaced lateral malleolar fx, placed in walking boot and will have him f/u with ortho Differential Diagnosis Differential Diagnosis: sprain, fx, contusion Imaging Data Radiologic Study: Attestation: I personally reviewed and interpreted this imaging study as follows: Imaging: X-Ray My impression: lateral malleolar fx HPI General Mode of arrival: wheelchair . Date/Time Provider Initiated Documentation: 04/30/19 12:27 . Limitations to Documentation: no limitations . Information obtained by: patient . History of Present Illness 39 year old M presents to the emergency department with the chief complaint of right ankle pain, described as moderate, No relieving factors improve symptom(s), No exacerbating factors reported . Patient did receive the following treatments prior to arrival, none Related Data Home Medications Medication Instructions Recorded Confirmed calcium carbonate [Tums] 2 - 4 tab CH Q4H PRN 09/18/12 04/30/19 multivitamin 1 ea PO DAILY 09/18/12 04/30/19 cholecalciferol (vitamin D3) 1,000 unit PO DAILY 10/14/12 04/30/19 Enema Disposable 133 ml [place] .EVERY 3 DAYS PRN 04/15/14 04/30/19 aspirin [Ecotrin Low Strength] 81 mg PO DAILY 04/15/14 04/30/19 docusate sodium [Colace] 100 mg PO BID PRN 04/15/14 04/30/19 polyethylene glycol 3350 17 gm PO DAILY 04/15/14 04/30/19 Allergies Allergy/AdvReac Type Severity Reaction Status Date / Time promethazine Allergy MYOTONIC Unverified 04/30/19 12:32 DYSTROPY Benzodiazepines AdvReac Severe avoid d/t Unverified 04/30/19 12:32 myotonic dystrophy succinylcholine AdvReac Severe avoid d/y Unverified 04/30/19 12:32 myotonic dystrophy narcotics AdvReac Severe avoid d/t Uncoded 04/30/19 12:32 myotonic dystrophy General Stated Complaint: Orthopedic ARTEMIO: 4 Review of Systems All systems reviewed & are unremarkable except as noted in HPI and below Constitutional Constitutional: Denies chills, Denies fever(s) and Denies weakness ENT Ears, Nose, Mouth, and Throat: Denies change in voice Cardiovascular Cardiovascular: Denies chest pain and Denies dyspnea Respiratory Respiratory: Denies cough and Denies dyspnea Gastrointestinal Gastrointestinal: Denies abdominal pain, Denies nausea and Denies vomiting Neurologic Neurologic: Denies weakness [facility] Medical History (Updated 11/13/18 @ 16:49 by Amna Lakhani DO) BASAL CELL Cardiomyopathy (Chronic) a. 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 (ventriculoperitoneal) shunt status (Acute) Social History Smoking/Tobacco Use Status: Never Alcohol Intake: never Drug use: Never Substance use type: does not use Do you feel safe in your relationship?: Yes Exam Const General: no acute distress Orientation: alert HENOR Head: normal to inspection Ears: external ears normal General nose exam: external nose normal Mouth: moist mucous membranes Eyes General: appearance normal, both eyes and all related structures Neck Neck: normal visual inspection Resp Effort & Inspection: normal respiratory effort and able to speak in complete sentences Cardio Rate: regular rate Skin General skin exam: no rashes or lesions noted Neuro General: alert and oriented x3 Extrem General: normal capillary refill Psych Mental Status: mental status grossly normal Course Vital Signs Vital signs: Vital Signs Temperature 36.7 C 04/30/19 12:28 Pulse 108 H 04/30/19 12:28 Respiratory Rate 16 04/30/19 12:28 Blood Pressure 148/89 H 04/30/19 12:28 Temperature 36.7 C 04/30/19 12:28 Temperature Source Skin 04/30/19 12:28 Pulse 108 H 04/30/19 12:28 Respiratory Rate 16 04/30/19 12:28 Respiratory Effort Non-Labored 04/30/19 12:28 Blood Pressure 148/89 H 04/30/19 12:28 Blood Pressure Position Sitting 04/30/19 12:28
[2019-04-30] MEDS: Acetaminophen 500 MG TAB 1000 MG PO (12:46)
[2019-04-30 12:51] VITALS: O2SAT 91
--- NOTE | 2019-04-30 13:02 | DI.RAD_ITS ---
EXAM: XR ANKLE RT COMPLETE INDICATION: pain s/p fall. COMPARISON: No exams were available for comparison TECHNIQUE: 2D digital imaging was performed. FINDINGS: There is soft tissue swelling around both malleoli. There is a nondisplaced fracture of the lateral malleolus. No ankle mortise widening is seen. There is no talar dome defect. No distal tibial frac ture is visible. IMPRESSION: Nondisplaced lateral malleolar fracture.
== END 2019-04-30 13:47 | disposition home or self-care (01) ==
PROVIDERS: Emergency Provider Emergency Medicine; PCP Family Medicine
DX: S82.64XA Nondisplaced fracture of lateral malleolus of right fibula, initial encounter for closed fracture (principal); W18.30XA Fall on same level, unspecified, initial encounter; X50.9XXA Other and unspecified overexertion or strenuous movements or postures, initial encounter
CPT/HCPCS: 27786; 73610; L4361

== ENCOUNTER 2019-05-08 09:41 | Emergency (ER) | payer MEDICARE, MEDICAID, SELFPAY ==
[2019-05-08 09:48] VITALS: BP 157/89; PULSE 89; RESP 16; TEMP 36.8; O2SAT 93
--- NOTE | 2019-05-08 10:13 | ED.GENADUL_ITS ---
Discharge Plan Disposition Patient Disposition: HOME Condition: Good Discharge Details Chief Complaint: Orthopedic Clinical Impression: Ankle fracture, lateral malleolus, closed Primary Care Provider: Sixto Tracy ED Provider: Taylor Simmons Home Meds and New Rx's Prescriptions: Continued cholecalciferol (vitamin D3) 1,000 UNIT capsule 1,000 unit PO DAILY RF: 0 calcium carbonate [Tums] 200 MG tablet,chewable 2 - 4 tab CH Q4H PRNRF: 0 multivitamin 1 EACH capsule 1 ea PO DAILY RF: 0 aspirin [Ecotrin Low Strength] 81 MG tablet,delayed release (DR/EC) 81 mg PO DAILY RF: 0 polyethylene glycol 3350 17 GM powder in packet 17 gm PO DAILY RF: 0 Enema Disposable 133 ML enema 133 ml [place] .EVERY 3 DAYS PRNRF: 0 docusate sodium [Colace] 100 MG capsule 100 mg PO BID PRNRF: 0 Discharge Instructions Instructions: Leg Fracture (ED) Additional Instructions: Encourage rest, ice, elevation. May continue with Tylenol and/or ibuprofen as needed for discomfort. Compression hose can help with swelling. Dr. Garduno is expecting you at this time, please go directly to their office for further evaluation. If you develop new or worsening symptoms please seek care urgently once again. Referrals: Truman Garduno MD [ [facility] STAFF PHYSICIAN] - Discharge Data Discharge Date/Time-TO BE ENTERED AT DEPARTURE: 05/08/19 10:15 Medical Decision Making Patient 39-year-old male with history of restrictive lung disease, the patient, cardiomyopathy, and nondisplaced right ankle fracture. Patient was diagnosed with the ankle fracture on 04/30/2019. Has been continuing to use the walking boot as previously advised. Home care provider was concerned regarding the amount of ecchymosis and swelling to the right lower extremity. Patient reports that he has been keeping/in dependent position. Often sits with the leg down. Denies any fevers or chills. No recurrent trauma. Is not having any pain in the area at this time. On exam, he does have notable ecchymosis and swelling. Is not erythematous or warm. It does not appear acutely infected. Good ca pillary refill. Advised that the migration of the ecchymosis is typical and is likely associated with gravitational pull with the leg being in a more dependent position. I did encourage that he try to elevate as much as possible. Nursing staff did fit the patient with FELIX hose. However, given their concern, I did contact orthopedics who is able to see him at this point. We will hold off on placing FELIX hose on as he is going immediately from here to their office for further evaluation. This is placing the at home care provider at much much more ease. She will help to apply the FELIX hose after being evaluated by orthopedics. They are given return precautions. All the questions and concerns were addressed in agreement this plan. HPI General Mode of arrival: ambulatory . Date/Time Provider Initiated Documentation: 05/08/19 09:46 . Limitations to Documentation: no limitations . Information obtained by: patient and family (care transitions manager) . HPI Narrative: Patient is a 39-year-old male, brought in by home care provider, with increased swelling and ecchymosis to his right foot. Patient was seen here on 04/30/2019 at which time he was diagnosed with a nondisplaced fracture of the lateral malleolus. Patient was placed in a walking boot and he does have upcoming appointment with orthopedics next week. He denies any recurrent trauma. States that the foot is largely in a dependent area. Home care provider was concerned as the foot was quite swollen and ecchymotic. She is concerned for possible other underlying etiology causing this change in symptoms. Patient denies any pain at this time. Reports that the foot is overall feeling well but does have a dramatic appearance. Denies any fevers or chills. Related Data Home Medications Medication Instructions Recorded Confirmed calcium carbonate [Tums] 2 - 4 tab CH Q4H PRN 09/18/12 05/08/19 multivitamin 1 ea PO DAILY 09/18/12 05/08/19 cholecalciferol (vitamin D3) 1,000 unit PO DAILY 10/14/12 05/08/19 Enema Disposable 133 ml [place] .EVERY 3 DAYS PRN 04/15/14 05/08/19 aspirin [Ecotrin Low Strength] 81 mg PO DAILY 04/15/14 05/08/19 docusate sodium [Colace] 100 mg PO BID PRN 04/15/14 05/08/19 polyethylene glycol 3350 17 gm PO DAILY 04/15/14 05/08/19 Allergies Allergy/AdvReac Type Severity Reaction Status Date / Time promethazine Allergy MYOTONIC Unverified 05/08/19 09:54 DYSTROPY Benzodiazepines AdvReac Severe avoid d/t Unverified 05/08/19 09:54 myotonic dystrophy succinylcholine AdvReac Severe avoid d/y Unverified 05/08/19 09:54 myotonic dystrophy narcotics AdvReac Severe avoid d/t Uncoded 05/08/19 09:54 myotonic dystrophy General Stated Complaint: Orthopedic ARTEMIO: 3 Review of Systems Constitutional Constitutional: Reports as per HPI, Denies chills, Denies fever(s), Denies headache(s) and Denies weakness ENT Ears, Nose, Mouth, and Throat: Denies headache(s) Cardiovascular Cardiovascular: Reports as per HPI Respiratory Respiratory: Reports as per HPI and Denies cough Musculoskeletal Musculoskeletal: Reports as per HPI and Denies tingling Integumentary/Breasts Skin/Breast: Reports as per HPI, Denies rash, Reports unusual bruising and Denies wounds Neurologic Neurologic: Reports as per HPI, Denies headache(s), Denies tingling, Denies paresthesias and Denies weakness [facility] Medical History BASAL CELL Cardiomyopathy (Chronic) a. 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 (ventriculoperitoneal) shunt status (Acute) Social History Smoking/Tobacco Use Status: Never Alcohol Intake: never Drug use: Never Substance use type: does not use Do you feel safe at home: Yes Do you feel safe in your relationship?: Yes Exam Const General: cooperative, healthy appearing, comfortable, no acute distress, well developed and well groomed Nutritional Appearance: average body habitus and well nourished Orientation: alert and awake Resp Effort & Inspection: normal respiratory effort, able to speak in complete sentences and no respiratory distress Cardio Rate: regular rate Rhythm: regular rhythm Skin General skin exam: ecchymosis (To the lateral aspect of the right ankle extending down the lateral aspect ) Neuro General: alert and awake Cognition: normal cognition Speech: speech normal Gait: normal gait Motor: muscle tone normal throughout Sensory Exam: no sensory deficits noted Extrem Right lower extremity: normal capillary refill, lower leg Details: normal to inspection and no edema; no tenderness, no localized swelling and no palpable cords, ankle Details: abnormal to inspection (Ecchymosis lateral ankle), tenderness Location: of the lateral malleolus, swelling Details: laterally and ecchymosis; no unusual warmth, no abrasions, no lacerations, no crepitus and achilles tendon exam normal and foot Details: normal capillary refill, toes with normal ROM, no edema, vascular exam Details: normal capillary refill and motor- sensory exam Details: light-touch normal; no tenderness (No pain on palpation about the foot. He does have notable ecchymosis and swelling to the dorsal and lateral aspect of the foot), no unusual warmth, no laceration, no ecchymosis and no crepitus; abnormal to inspection (Ecchymosis and swelling to the lateral ankle and) and ROM limited Psych Appearance: grossly normal and well kempt Mental Status: mental status grossly normal Speech and Movement: speech and movement normal Course Vital Signs Vital signs: Vital Signs Temperature 36.8 C 05/08/19 09:48 Pulse 89 05/08/19 09:48 Respiratory Rate 16 05/08/19 09:48 Blood Pressure 157/89 H 05/08/19 09:48 Pulse Oximetry 93 L 05/08/19 09:48 Temperature 36.8 C 05/08/19 09:48 Temperature Source Temporal Artery Scan 05/08/19 09:48 Pulse 89 05/08/19 09:48 Respiratory Rate 16 05/08/19 09:48 Respiratory Effort Non-Labored 05/08/19 09:52 Blood Pressure 157/89 H 05/08/19 09:48 Blood Pressure Position Sitting 05/08/19 09:48 Pulse Oximetry 93 L 05/08/19 09:48 Oxygen Delivery Method Room Air 05/08/19 09:48 Oxygen Flow Rate 0 05/08/19 09:48 Pain Level 0 05/08/19 09:52
== END 2019-05-08 10:15 | disposition home or self-care (01) ==
PROVIDERS: Emergency Provider Physician Assistant; PCP Family Medicine
DX: S82.64XD Nondisplaced fracture of lateral malleolus of right fibula, subsequent encounter for closed fracture with routine healing (principal); W18.30XD Fall on same level, unspecified, subsequent encounter; X50.9XXD Other and unspecified overexertion or strenuous movements or postures, subsequent encounter
CPT/HCPCS: 99201; 99213; 99282

== ENCOUNTER 2019-06-03 10:10 | Outpatient (CLI) | payer MEDICARE, MEDICAID, SELFPAY ==
--- NOTE | 2019-06-03 10:16 | DI.RAD_ITS ---
EXAM: XR ANKLE RT COMPLETE INDICATION: f/u fracture. COMPARISON: No exams were available for comparison TECHNIQUE: 2D digital imaging was performed. FINDINGS: There is now slight separation of the fracture the lateral malleolus when compared with the previous exam. No ankle mortise widening or additional fractures are seen.N
== END 2019-06-03 10:30 ==
PROVIDERS: PCP Family Medicine; Referring Provider Family Medicine; Visit Provider Orthopaedic Surgery
DX: S82.64XD Nondisplaced fracture of lateral malleolus of right fibula, subsequent encounter for closed fracture with routine healing (principal); X58.XXXD Exposure to other specified factors, subsequent encounter
CPT/HCPCS: 99213; 73610

== ENCOUNTER 2019-07-08 11:19 | Outpatient (CLI) | payer MEDICARE, MEDICAID, SELFPAY ==
--- NOTE | 2019-07-08 11:26 | DI.RAD_ITS ---
EXAM: XR ANKLE RT COMPLETE INDICATION: F/U FRACTURE. COMPARISON: No exams were available for comparison TECHNIQUE: 2D digital imaging was performed. FINDINGS: There has been no change in the alignment of the lateral malleolar fracture.
== END 2019-07-08 11:39 ==
PROVIDERS: PCP Family Medicine; Referring Provider Family Medicine; Visit Provider Orthopaedic Surgery
DX: S82.64XD Nondisplaced fracture of lateral malleolus of right fibula, subsequent encounter for closed fracture with routine healing (principal); S82.831D Other fracture of upper and lower end of right fibula, subsequent encounter for closed fracture with routine healing; X58.XXXD Exposure to other specified factors, subsequent encounter
CPT/HCPCS: 99213; 73610

== ENCOUNTER 2019-08-03 16:54 | Emergency (ER) | payer MEDICARE, MEDICAID, SELFPAY ==
[2019-08-03 17:03] VITALS: BP 137/85; PULSE 101; RESP 16; TEMP 36.7; O2SAT 89
--- NOTE | 2019-08-03 17:35 | ED.GENADUL_ITS ---
Discharge Plan Disposition Patient Disposition: HOME Condition: Stable Discharge Details Chief Complaint: Cellulitis Clinical Impression: Cellulitis of scalp Primary Care Provider: Sixto Tracy ED Provider: Bernabe Guillen Home Meds and New Rx's Prescriptions: New sulfamethoxazole-trimethoprim [Bactrim DS] 800-160 mg tablet 1 tab PO BID Qty: 20 RF: 0 Continued cholecalciferol (vitamin D3) 1,000 UNIT capsule 1,000 unit PO DAILY RF: 0 calcium carbonate [Tums] 200 MG tablet,chewable 2 - 4 tab CH Q4H PRNRF: 0 multivitamin 1 EACH capsule 1 ea PO DAILY RF: 0 aspirin [Ecotrin Low Strength] 81 MG tablet,delayed release (DR/EC) 81 mg PO DAILY RF: 0 polyethylene glycol 3350 17 GM powder in packet 17 gm PO DAILY RF: 0 docusate sodium [Colace] 100 MG capsule 100 mg PO BID PRNRF: 0 Discharge Instructions Instructions: Cellulitis (ED) Additional Instructions: Bactrim as directed. Warm compresses every 2 hours for 20 minutes. Please watch for new or worsening symptoms and return to the ER for any concerns. As we discussed, if abscess forms or you do not respond well to warm compresses and antibiotics you will likely need to return here for incision and drainage of a developing abscess. Otherwise I recommend contacting your primary care provider for prompt outpatient reevaluation Medical Decision Making 39-year-old gentleman presents with several week history of possible infection to the posterior aspect of his scalp. Worse over the past several days. As a dali, tender, erythematous, indurated but no fluctuance or pointing abscess. Discussed options at this time. Can attempt I&D versus p.o. antibiotics and warm compresses. Patient would prefer to attempt oral antibiotics and warm compresses with the understanding that if an abscess forms or does not respond to conservative therapy he will likely need to return to the ER for incision and drainage. Given his presentation I do believe this to be a perfectly reasonable plan. Medical Records Medical records reviewed: Yes I reviewed the patient's medical records. HPI General Mode of arrival: ambulatory . Date/Time Provider Initiated Documentation: 08/03/19 17:19 . Limitations to Documentation: no limitations . Information obtained by: patient . 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 There has been no drainage. No fever. Patient having difficulty lying on the back of his head when sleeping because of increased pain. Denies rash elsewhere on his body. Past medical history of restrictive lung disease, intraperitoneal shunt, SBO, conductive hearing loss, myotonic dystrophy, cardiomyopathy. Has not taken any medication for discomfort. Related Data Home Medications Medication Instructions Recorded Confirmed calcium carbonate [Tums] 2 - 4 tab CH Q4H PRN 09/18/12 08/03/19 multivitamin 1 ea PO DAILY 09/18/12 08/03/19 cholecalciferol (vitamin D3) 1,000 unit PO DAILY 10/14/12 08/03/19 aspirin [Ecotrin Low Strength] 81 mg PO DAILY 04/15/14 08/03/19 docusate sodium [Colace] 100 mg PO BID PRN 04/15/14 08/03/19 polyethylene glycol 3350 17 gm PO DAILY 04/15/14 08/03/19 sulfamethoxazole-trimethoprim 1 tab PO BID #20 tab 08/03/19 [Bactrim DS] Previous Rx's Medication Instructions Recorded sulfamethoxazole-trimethoprim 1 tab PO BID #20 tab 08/03/19 [Bactrim DS] Allergies Allergy/AdvReac Type Severity Reaction Status Date / Time promethazine Allergy MYOTONIC Unverified 08/03/19 17:06 DYSTROPY Benzodiazepines AdvReac Severe avoid d/t Unverified 08/03/19 17:06 myotonic dystrophy succinylcholine AdvReac Severe avoid d/y Unverified 08/03/19 17:06 myotonic dystrophy narcotics AdvReac Severe avoid d/t Uncoded 08/03/19 17:06 myotonic dystrophy General Stated Complaint: Cellulitis ARTEMIO: 4 Review of Systems Constitutional Constitutional: Denies fever(s) and Denies headache(s) ENT Ears, Nose, Mouth, and Throat: Denies headache(s) Cardiovascular Cardiovascular: Denies chest pain Respiratory Respiratory: Denies cough Musculoskeletal Musculoskeletal: Denies myalgias Integumentary/Breasts Skin/Breast: Denies rash Neurologic Neurologic: Denies headache(s) [facility] Medical History BASAL CELL Cardiomyopathy (Chronic) a. 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 status (Acute) Social History Smoking/Tobacco Use Status: Never Alcohol Intake: never Drug use: Never Substance use type: does not use Do you feel safe at home: Yes Do you feel safe in your relationship?: Yes Exam Const General: cooperative, healthy appearing, comfortable and no acute distress Orientation: alert and awake [facility] Head: normocephalic, atraumatic, scalp tenderness (Occiput, quarter size area of erythema with tenderness and induration) and other (There is no fluctuance or pointing abscess) Mouth: moist mucous membranes Eyes Conjunctivae: conjunctivae normal Neck Neck: normal visual inspection, full ROM, no lymphadenopathy, trachea midline and supple Resp Effort & Inspection: normal respiratory effort and able to speak in complete sentences Cardio Rate: regular rate Rhythm: regular rhythm Skin General skin exam: no rashes or lesions noted Neuro General: alert, awake, moves all extremities and no focal motor deficits Sensory Exam: no sensory deficits noted Psych Appearance: grossly normal Mental Status: mental status grossly normal Course Vital Signs Vital signs: Vital Signs Temperature 36.7 C 08/03/19 17:03 Pulse 101 H 08/03/19 17:03 Respiratory Rate 16 08/03/19 17:03 Blood Pressure 137/85 08/03/19 17:03 Pulse Oximetry 89 L 08/03/19 17:03 Temperature 36.7 C 08/03/19 17:03 Temperature Source Skin 08/03/19 17:03 Pulse 101 H 08/03/19 17:03 Respiratory Rate 16 08/03/19 17:03 Respiratory Effort Non-Labored 08/03/19 17:03 Blood Pressure 137/85 08/03/19 17:03 Blood Pressure Position Sitting 08/03/19 17:03 Pulse Oximetry 89 L 08/03/19 17:03 Oxygen Delivery Method Room Air 08/03/19 17:03 Oxygen Flow Rate 0 08/03/19 17:03 Pain Level 10 08/03/19 17:03
[2019-08-03] MEDS: Sulfameth/Trimeth DS TAB 1 TAB PO (17:59)
== END 2019-08-03 17:55 | disposition home or self-care (01) ==
PROVIDERS: Emergency Provider Physician Assistant; PCP Family Medicine
DX: L03.811 Cellulitis of head [any part, except face] (principal)
CPT/HCPCS: 99283

== ENCOUNTER 2019-10-08 14:13 | Inpatient (IN) | payer MEDICARE, MEDICAID, SELFPAY ==
[2019-10-08] VITALS (31 sets, daily range): BP systolic 118–144; BP diastolic 63–82; PULSE 86–109; RESP 5–26; TEMP 36.4–36.9; O2SAT 68–93
--- NOTE | 2019-10-08 14:30 | DI.US_ITS ---
EXAM: US LOWER EXTREMITY VENOUS RT CLINICAL HISTORY: swelling, ?decr pulse TECHNIQUE: Ultrasound performed using standard protocol. COMPARISON: US HEART ULTRASOUND GRP from 06/01/2009 FINDINGS: Duplex venous ultrasound was performed according to the usual protocol. The deep veins are freely com pressible throughout and there is normal flow augmentation with manual calf compression. 2D and Doppl er evaluation are unremarkable. IMPRESSION: No evidence of deep venous thrombosis of the right lower extremity
--- NOTE | 2019-10-08 14:39 | W.ED.GENAD ---
Discharge Plan Disposition Patient Disposition: [facility] INPATIENT Condition: Stable Discharge Details Chief Complaint: Vascular Clinical Impression: Hypoxia, Lung consolidation Admit Date/Time: 10/08/19 18:11 Admit Provider: Jefferson Nolan Attending Provider: Jefferson Nolan Primary Care Provider: Sixto Tracy ED Provider: Truman Carrillo Discharge Data Discharge Date/Time-TO BE ENTERED AT DEPARTURE: 10/08/19 19:21 Medical Decision Making 39-year-old male presents from home with right lower extremity swelling that was noticed by his . He denies to me chest pain or difficulty breathing. He has a complex past medical history including myotonic dystrophy, DOG TRAINER shunt, cardiomyopathy, restrictive lung disease with up to 3 L oxygen as needed at home, as well as a history of paroxysmal atrial fibrillation specifically noted on EKG from February 23, 2014. On exam he is interactive and in no acute distress, the right lower extremity is edematous and tense. The left leg has a easily palpable dorsalis pedis pulse, right leg the pulse is barely palpable. Differential diagnosis includes DVT, peripheral occlusive arterial disease, venous insufficiency, and given his known restrictive lung disease and hypoxia must exclude pneumonia or PE. Patient underwent right lower extremity ultrasound which does not show evidence of DVT. Subsequently, patient underwent CT imaging of chest and CTA with runoff of the bilateral lower extremity. CT of the chest reveals atelectatic collapse of the left lower lobe, moderate consolidation of the left upper lobe, subsegmental consolidation in the right middle and right lower lobes. There is note of pericardial effusion, no evidence of PE. CTA with runoff of the lower extremity shows no occlusion or significant stenosis of the arteries. There is note of prominent subcutaneous fat stranding and edema throughout the right lower extremity. Patient seen and discussed with respiratory therapy and we will trial him on high flow both for oxygenation and for a small amount of PEEP. I discussed the patient's findings with his on-call public guardian, Micki Torres, who agrees with admission. She states he has a DNR/DNI order. The office of the public guardian is available at . Ms Torres did forward clinic notes from Fabio Cardiolosatinder, Dr Salvador, which note known pericardial effusion. Given the note of persistent pericardial effusion on todays imaging I did perform bedside echo which does not show right or left ventricular collapse/tamponade. Case discussed with Dr. Nolan and patient to be admitted. ECG Data Attestation: I personally reviewed and interpreted this ECG (s) as follows: Interpretation: Normal sinus rhythm with a rate of 94, the QRS is narrow, there is no ST segment elevation present there is nonspecific ST segment flattening present, no significant change versus comparison of November 12, 2018 HPI General Mode of arrival: wheelchair. Date/Time Provider Initiated Documentation: 10/08/19 14:13. Limitations to Documentation: no limitations. Information obtained by: patient. History of Present Illness 39 year old M presents to the emergency department with the chief complaint of Right leg swollen and tense, described as moderate, Quality is described as dull, and is localized to the right and lower extremity. Patient started experiencing this hour(s) and it has been constant. No relieving factors improve symptom(s), No exacerbating factors reported . Patient notes denies chest pain, cough and shortness of breath. Patient did receive the following treatments prior to arrival, other (Wears 3 L of oxygen as needed at home) Related Data Home Medications Medication Instructions Recorded Confirmed calcium carbonate [Tums] 2 - 4 tab CH Q4H PRN 09/18/12 10/08/19 multivitamin 1 ea PO DAILY 09/18/12 10/08/19 cholecalciferol (vitamin D3) 1,000 unit PO DAILY 10/14/12 10/08/19 aspirin [Ecotrin Low Strength] 81 mg PO DAILY 04/15/14 10/08/19 docusate sodium [Colace] 100 mg PO BID PRN 04/15/14 08/03/19 polyethylene glycol 3350 17 gm PO DAILY 04/15/14 08/03/19 Allergies Allergy/AdvReac Type Severity Reaction Status Date / Time promethazine Allergy MYOTONIC Unverified 08/03/19 17:06 DYSTROPY Benzodiazepines AdvReac Severe avoid d/t Unverified 08/03/19 17:06 myotonic dystrophy succinylcholine AdvReac Severe avoid d/y Unverified 08/03/19 17:06 myotonic dystrophy narcotics AdvReac Severe avoid d/t Uncoded 08/03/19 17:06 myotonic dystrophy General Stated Complaint: Vascular ARTEMIO: 3 Review of Systems Narrative: Denies fever or cough. No chest pain or difficulty breathing. Has chronic restrictive lung disease. 7 systems reviewed and otherwise negative [facility] Medical History BASAL CELL Cardiomyopathy (Chronic) a. EF 50%, mild global hypokinesis on echo Cardiomyopathy First degree AV block (Chronic) Gallstones (Acute) HYDROCEPHALUS Hyperlipidemia Myotonic dystrophy (Chronic) MYOTONIC DYSTROPHY Paroxysmal atrial fibrillation Restrictive lung disease (Acute) Right bundle branch block (Chronic) Right bundle branch block RUPTURED EARDRUM Small bowel obstruction (Acute) velopalatine insufficiency (Chronic) DOG TRAINER (ventriculoperitoneal) shunt status (Acute) Social History Smoking/Tobacco Use Status: Never Alcohol Intake: never Drug use: Never Substance use type: does not use Do you feel safe at home: Yes Do you feel safe in your relationship?: Yes Exam Narrative Exam Narrative: GEN: awake, alert, oriented 3. Pleasant, well groomed, interactive. HEAD: Normocephalic, atraumatic, healed surgical scars ENT: Mucous membranes moist, External ear exam unremarkable EYES: PERRL, EOMI NECK: Full ROM, no LUKAS, no menigismus CHEST/RESP: Nontender, clear to auscultation bilateral, fine rales at bases bilaterally CARDIOVASCULAR: RRR, no murmur, rub thompson. 2+ Rad pulse bilateral ABDOMEN: Soft, nontender, no mass. +Bowel sounds EXT: Full ROM, the right lower extremity is edematous and asymmetrically swollen versus contralateral side. Left dorsalis pedis 2+, right discretely palpable. Neuro: Grossly normal neurologic exam, conversant, interactive. Psych: Speech fluent, thoughts congruent, affect normal Course Vital Signs Vital signs: Vital Signs Temperature 36.9 C 10/08/19 14:15 Pulse 102 H 10/08/19 14:15 Respiratory Rate 26 H 10/08/19 14:15 Blood Pressure 144/82 H 10/08/19 14:15 Pulse Oximetry 68 L 10/08/19 14:15 Temperature 36.9 C 10/08/19 14:15 Temperature Source Skin 10/08/19 14:15 Pulse 102 H 10/08/19 14:15 Respiratory Rate 26 H 10/08/19 14:15 Respiratory Effort 10/08/19 14:28 Blood Pressure 144/82 H 10/08/19 14:15 Blood Pressure Position Sitting 10/08/19 14:15 Pulse Oximetry 90 L 10/08/19 14:32 Oxygen Delivery Method Nasal Cannula 10/08/19 14:32 Oxygen Flow Rate 3 10/08/19 14:32 Pain Level 0 10/08/19 14:15 Comment 10/08/19 14:15
[2019-10-08] MEDS: Normal Saline 1,000 ML 1000 ML IV (14:59)
[2019-10-08 15:09] LABS: HGB 15.7 g/dL (13.5-17.5); Mean Corp. HGB Concentration 27.4 g/dL (32.0-36.0); Mean Corpuscular Hemoglobin 27.8 pg (27.0-33.0); Mean Corpuscular Volume 101.6 fL (80-95); Mean Platelet Volume 10.7 fL (8.0-11.0); Platelet Count 185 x1000/uL (130-400); RBC 5.64 m/cumm (4.50-6.00); RBC Distribution Width 20.6 % (11.8-14.1); White Blood Cell Count 8.28 k/cumm (4.4-10.8)
[2019-10-08 15:20] LABS: ALT 33 U/L (16-63); AST 30 U/L (15-37); Albumin 2.8 g/dL (3.4-5.0); Alkaline Phosphatase 62 U/L (46-116); Anion Gap 0.7 mmol/L (3-11); BUN 21 mg/dL (7-18); Bilirubin, Total 0.3 mg/dL (0.2-1.0); CO2 37.3 mmol/L (21.0-32.0); CREATININE 0.84 mg/dL (0.70-1.30); Calcium 8.9 mg/dL (8.5-10.1); Chloride 107 mmol/L (98-107); Glucose 112 mg/dL (74-106); Magnesium 2.5 mg/dL (1.8-2.4); Sodium 145 mmol/L (136-145); Total Protein 7.4 g/dL (6.4-8.2)
[2019-10-08 15:26] LABS: Troponin I 0.07 ng/Ml (<0.06)
--- NOTE | 2019-10-08 15:30 | DI.CT_ITS ---
EXAM: CT CHEST PE CTA CLINICAL HISTORY: Hypoxia, R leg swollen TECHNIQUE: Axial CT angiography was performed with multi-slice acquisition and multi-planar and/or 3 D reconstructions. COMPARISON: CT CT ABDOMEN PELVIS W from 11/11/2018 FINDINGS: CT angiography of the chest was performed with a bolus infusion 75 cc of Omnipaque 350. Visualized p ortions of the liver are unremarkable. There is a pericardial effusion measuring up to about 2 cm in diameter posteriorly. No gross cardiac chamber enlargement seen. No evidence of pulmonary embolic disease. Thoracic aorta and major branches appear normal. There is significant atelectasis of left lower lobe, areas of atelectasis are also present in right m iddle lobe, right lower lobe, and left upper lobe. Although the findings appear to represent atelect asis, the possibility of superimposed pneumonia is not excluded, please correlate clinically. No ple ural effusion seen. No mediastinal or hilar adenopathy seen. Tracheobronchial tree appears intact. IMPRESSION: No evidence of pulmonary embolic disease. Pericardial effusion noted, up to 2 cm in thickness on posterior aspect. Marked left lower lobe collapse and additional areas of atelectasis and/or consolidation seen bilater ally.
[2019-10-08 15:31] LABS: HCT 57.3 % (40.0-50.0)
[2019-10-08 15:32] LABS: Absolute Lymphocyte Count 0.99 k/cumm (1.2-3.4); Absolute Monocyte Count 0.66 k/cumm (0.11-0.7); Absolute Neutrophil Count 6.54 k/cumm (1.2-6.7); Diff Comment Manual Differential; Nucleated RBC 2 /100WBC
[2019-10-08 15:33] LABS: Anisocytosis 2+; Hypochromasia 1+; Macrocytosis 1+; Poikilocytes 1+; Polychromasia Present
--- NOTE | 2019-10-08 15:33 | DI.CT_ITS ---
EXAM: CT ABD AORTA CTA W RUNOFF CLINICAL HISTORY: R leg swelling, cool COMPARISON: CT CT CHEST PE CTA from 10/08/2019 TECHNIQUE: Axial CT angiography was performed with multi-slice acquisition and multi-planar and/or 3D reconstruc tions. FINDINGS: CT angiography, lower abdomen and lower extremity runoff, was performed with intravenous infusion of 125 cc of Omnipaque 350. Abdominal aorta is of normal diameter, no dissection seen, major visceral b ranches visualized including SMA, RANJIT, renal arteries, and common iliac arteries, appear normal. The femoral and popliteal arteries appear normal bilaterally. The arterial circulation of the lower extremities distal to the knee appear unremarkable by CT criteria, no occlusion identified. Visualized portions of kidneys, pancreas, and left adrenal appear normal. Appendix is normal. No ev idence of diverticulitis in visualized portions of the colon. Urinary bladder grossly unremarkable. No abdominal wall hernia as visualized. No abdominal or pelvic adenopathy. IMPRESSION: Negative CT angiogram lower abdomen and bilateral lower extremities.
--- NOTE | 2019-10-08 15:46 | NUR.NOTE ---
Nursing Note: Patient patient care secretary reports that Julio Cesar's normal RA oxygen saturation is 89%. PT uses oxygen as need.
[2019-10-08] MEDS: Omnipaque 350 MG/ML 100 ML BTL IJ ×2 (16:14→16:39)
--- NOTE | 2019-10-08 16:57 | DI.VRAD_ITS ---
PROCEDURE INFORMATION: Exam: CT Angiography Chest With Contrast Exam date and time: 10/08/2019 3:39 PM Age: 39 years old Clinical indication: Other: Hypoxia RT leg swollen TECHNIQUE: Imaging protocol: Computed tomographic angiography of the chest with intravenous contrast. 3D rendering: MIP and/or 3D reconstructed images were created by the technologist. Contrast material: OMNI 350; Contrast volume: 75 ml; Contrast route: IV; COMPARISON: CR XR CHEST 2V PA LATERAL 11/12/2018 9:22 AM FINDINGS: Pulmonary arteries: No filling defects within the main, lobar, segmental, and subsegmental pulmonary arterial branches. Aorta: No aortic aneurysm. No evidence of dissection. Lungs: Near complete atelectatic collapse of the left lower lobe. Moderate consolidation of the left upper lobe. Subsegmental consolidation in the right middle lobe and right lower lobe. Leftward shift of mediastinal structures secondary to left lung atelectasis. Pleural space: No pleural effusion or pneumothorax. Heart: Moderate sized pericardial effusion measuring up to 2 cm in thickness posteriorly. Lymph nodes: No enlarged lymph nodes. Bones/joints: No acute osseus lesion or fracture. Soft tissues: Unremarkable. IMPRESSION: 1. Moderate sized pericardial effusion measuring up to 2 cm in thickness posteriorly. 2. Near complete atelectatic collapse of the left lower lobe. Moderate consolidation of the left upper lobe. Subsegmental consolidation in the right middle lobe and right lower lobe. Although most of these areas most likely represent atelectasis, superimposed pneumonia cannot be excluded. 3. Leftward shift of mediastinal structures secondary to left lung atelectasis. 4. No CTA evidence of pulmonary embolism. Dictated and Authenticated by: Kyle Trejo MD. Ordering:RHONDA Laughlin MD
--- NOTE | 2019-10-08 17:05 | DI.VRAD_ITS ---
PROCEDURE INFORMATION: Exam: CTA Angiogram of the Abdominal Aorta and Bilateral Lower Extremities (Run-off) With IV Contrast Exam date and time: 10/08/2019 3:54 PM Age: 39 years old Clinical indication: Other: Hypoxia RT leg swollen TECHNIQUE: Imaging protocol: CT angiogram of the abdominal aorta, pelvis and bilateral lower extremities with IV iodinated contrast. 3D rendering: MIP and/or 3D reconstructed images were created by the technologist. Contrast material: OMNI 350; Contrast volume: 125 ml; Contrast route: IV; COMPARISON: CT CHEST PE CTA 10/08/2019 4:05 PM FINDINGS: Aorta: No aortic aneurysm. No aortic dissection. Mesenteric arteries: Superior and inferior mesenteric arteries are patent. Renal arteries: No occlusion or significant stenosis. Right iliac arteries: No occlusion or significant stenosis. Right femoral/popliteal arteries: No occlusion or significant stenosis. Right infrapopliteal arteries: No occlusion or significant stenosis. Left iliac arteries: No occlusion or significant stenosis. Left femoral/popliteal arteries: No occlusion or significant stenosis. Left infrapopliteal arteries: No occlusion or significant stenosis. Pancreas: Visualized portions are unremarkable. Kidneys and ureters: Visualized portions are unremarkable. No hydronephrosis or stones. Bowel: Visualized small and large bowel loops are unremarkable. Appendix: No evidence of appendicitis. Bladder: Unremarkable. No mass. Reproductive: Unremarkable as visualized. Intraperitoneal space: Unremarkable. No free air. No significant fluid collection. Lymph nodes: No lymphadenopathy. Bones/joints: No acute fracture. No dislocation. Soft tissues: Prominent subcutaneous fat stranding and edema throughout the right thigh, knee, calf, and foot soft tissues. IMPRESSION: 1. No occlusion or significant stenosis in the arteries of the lower extremities. 2. Prominent subcutaneous fat stranding and edema throughout the right thigh, knee, calf, and foot soft tissues. Dictated and Authenticated by: Kyle Trejo MD. Ordering:RHONDA Laughlin MD
--- NOTE | 2019-10-08 17:46 | HPE_ITS ---
Date of service: 10/08/19 Time of Service: 17:46 Assessment and Plan Assessment and plan (1) Edema: Status: Acute Assessment and plan: Peripheral edema in setting of chronic hypoxia, likely due to restrictive disease and/or hypoventilation syndrome, and possible cardiomyopathy. I think essentially the most unifying diagnosis (to account for the edema) at this point is flare of right heart failure, with possible contribution from hypoalbuminemia as well. Without cough, fever or white count I do not see case for pneumonia. I think we should try diuresis, update ECHO, do chest PT/IS and cautious supplemental O2 for sats approximately 88-90%; his respiratory drive is likely O2 dependent. History of Present Illness History of Present Illness Chief Complaint: leg swelling Narrative: 39 male with h/o myotonic dystrophy and unspecified cardiomyopathy; chronic hypoxia, d eclines to use prescribed home O2 -- brought in by caregiver for swelling RLE. Findings of note for absence of fever; o2 sats in 80s (within basewline, usual 70s, 80s, some low 90s); asymettric LE edema (R>L), albumin 2.8, negative DVT LEs, moderate pericardial effusion (w/o tamponade physiology per ER U/S) and near total left lung collapse and lesser degree atelectasis on right./ Troponin 0.07 and EKG shows absence RW progression precordial leads, similar but more complete to prior. Patient denies CP or SOB. In fact no complaints at present. Review of Systems All systems reviewed & are unremarkable except as noted in HPI and below [facility] Medical History BASAL CELL Cardiomyopathy (Chronic) a. 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 (ventriculoperitoneal) shunt status (Acute) Social History Smoking/Tobacco Use Status: Never Alcohol Intake: never Drug use: Never Substance use type: does not use Do you feel safe at home: Yes Do you feel safe in your relationship?: Yes Meds Home Medications and Allergies Home Medications Medication Instructions Recorded Confirmed Type calcium carbonate [Tums] 2 - 4 tab CH Q4H PRN 09/18/12 10/08/19 History multivitamin 1 ea PO DAILY 09/18/12 10/08/19 History cholecalciferol (vitamin D3) 1,000 unit PO DAILY 10/14/12 10/08/19 History aspirin [Ecotrin Low Strength] 81 mg PO DAILY 04/15/14 10/08/19 History docusate sodium [Colace] 100 mg PO BID PRN 04/15/14 08/03/19 History polyethylene glycol 3350 17 gm PO DAILY 04/15/14 08/03/19 History Allergies Allergy/AdvReac Type Severity Reaction Status Date / Time promethazine Allergy MYOTONIC Unverified 08/03/19 17:06 DYSTROPY Benzodiazepines AdvReac Severe avoid d/t Unverified 08/03/19 17:06 myotonic dystrophy succinylcholine AdvReac Severe avoid d/y Unverified 08/03/19 17:06 myotonic dystrophy narcotics AdvReac Severe avoid d/t Uncoded 08/03/19 17:06 myotonic dystrophy Exam Narrative Exam Narrative: 129/63, 91, 36.9, 14, 87%. HEENT JAVA DEVELOPER ANALYST shunt noted right retyroauricular; neck supple, cannot assess JVP; lungs rales throughout on left, and right base; heart distant but RRR; abdomen soft and NT; no scrotal edema; extremities 2-3+ edema RLE, mixed pitting and non-pitting; 1+ LLE Results Labs Result diagrams: 10/08/19 14:55 10/08/19 14:55 Labs: Laboratory Results - last 24 hr 10/08/19 10/08/19 10/08/19 14:55 14:55 14:55 WBC 8.28 RBC 5.64 Hgb 15.7 Hct 57.3 H* MCV 101.6 H MCH 27.8 MCHC 27.4 L RDW 20.6 H Plt Count 185 MPV 10.7 Immature Gran % See Differential Neutrophils % 79.0 Lymphocytes % 12.0 Monocytes % 8.0 Eosinophils % 0.0 Basophils % 0.0 Metamyelocytes % 1.0 Absolute Neutrophils 6.54 Absolute Lymphocytes 0.99 L Absolute Monocytes 0.66 Absolute Eosinophils 0.00 Absolute Basophils 0.00 Nucleated RBCs 2 Differential Comment Manual differential RBC Morphology See below Polychromasia Present Hypochromasia 1+ Poikilocytosis 1+ Anisocytosis 2+ Macrocytosis 1+ PT Cancelled INR Cancelled APTT Cancelled D-Dimer Cancelled Sodium 145 Potassium 4.0 Chloride 107 Carbon Dioxide 37.3 H Anion Gap 0.7 L BUN 21 H Creatinine 0.84 Estimated GFR/1.73 m2 >= 60.00 Glucose 112 H Calcium 8.9 Magnesium 2.5 H Total Bilirubin 0.3 AST 30 ALT 33 Alkaline Phosphatase 62 Troponin I 0.07 Total Protein 7.4 Albumin 2.8 L Last Vital Signs Temp 36.9 C 10/08/19 14:15 Pulse 91 H 10/08/19 17:01 Resp 14 10/08/19 17:10 BP 129/63 10/08/19 17:01 Pulse Ox 87 L 10/08/19 17:10 COVID-19 Screening Traveled to [place] from one of the affected countries or regions?: NO Recent travel in the [place] within the last 14 days?: No Recent out of the country travel within the last 14 days?: No Exposure or possible exposure to illness during travel?: No Had IN PERSON contact w/suspected or confirmed C-19 person: No Have you had the following symptoms in the past few days?: No Medical treatment received for symptoms/illness related to travel?: has been in own home with - no travel
[2019-10-08 18:00] LABS: PTT Activated 22.3 sec (21.0-31.4); Prothrombin Time 10.3 sec (9.3-11.0)
--- NOTE | 2019-10-08 18:07 | NUR.NOTE ---
Nursing Note: 1730 Roxann (Respiratory) at bedside. Oxygen saturations remain low despite efforts. PT refused efforts attempted by RT. Current oxygen sat 82% via NC set at 3lpm. MD Carrillo made aware.
[2019-10-08 18:15] LABS: D-Dimer 884 ng/mlFEU (<500)
[2019-10-08 18:42] LABS: Bilirubin Negative (Negative); Blood Negative (Negative); Clarity Clear (Clear); Glucose Negative (Negative); Ketones Negative (Negative); Leukocyte Esterase Negative (Negative); Nitrite Negative (Negative); pH 6.5 (5-8)
--- NOTE | 2019-10-08 19:01 | NUR.NOTE ---
Nursing Note: PT care report transferred to Ivy (GINNY).
--- NOTE | 2019-10-08 19:03 | NUR.NOTE ---
Nursing Note:PT will be transferred to the respiratory unit rm # [id number]. At the time or report (Ivy/ GINNY) the PT is alert and oriented, vitals stable.
[2019-10-08 19:23] LABS: Troponin I 0.07 ng/Ml (<0.06)
[2019-10-08] MEDS: Furosemide 20 MG/2 ML VIAL IVP (20:32)
[2019-10-08] MEDS: Normal Saline Flush 10 ML SYR IVP (20:32)
[2019-10-08] MEDS: Lidocaine 2% Jelly 11 ML SYR UR (20:33)
[2019-10-09 00:45] VITALS: BP 119/77; PULSE 96; RESP 18; TEMP 36.8; O2SAT 48
[2019-10-09 00:51] VITALS: O2SAT 85
[2019-10-09 07:25] LABS: Troponin I < 0.05 ng/Ml (<0.06)
[2019-10-09 08:40] VITALS: O2SAT 88
[2019-10-09 09:02] LABS: Abs Immature Grans 0.24 k/cumm (0.0-0.09); HGB 15.7 g/dL (13.5-17.5); Mean Corp. HGB Concentration 26.9 g/dL (32.0-36.0); Mean Corpuscular Hemoglobin 27.8 pg (27.0-33.0); Mean Corpuscular Volume 103.4 fL (80-95); Mean Platelet Volume 11.4 fL (8.0-11.0); Platelet Count 181 x1000/uL (130-400); RBC 5.65 m/cumm (4.50-6.00); RBC Distribution Width 20.7 % (11.8-14.1); White Blood Cell Count 10.68 k/cumm (4.4-10.8)
[2019-10-09 09:09] LABS: Anion Gap 1.6 mmol/L (3-11); BUN 14 mg/dL (7-18); C-Reactive Protein 2.45 mg/dL (0.0-0.3); CO2 37.4 mmol/L (21.0-32.0); CREATININE 0.62 mg/dL (0.70-1.30); Calcium 8.8 mg/dL (8.5-10.1); Chloride 106 mmol/L (98-107); Glucose 104 mg/dL (74-106); Magnesium 2.7 mg/dL (1.8-2.4); Potassium 4.5 mmol/L (3.5-5.1); Sodium 145 mmol/L (136-145)
--- NOTE | 2019-10-09 09:09 | DI.RAD_ITS ---
EXAM: XR PORTABLE CHEST AP CLINICAL HISTORY: follow up atelectasis, mediastinal shift TECHNIQUE: COMPARISON: CR XR abdomen flat upright from 11/13/2018 FINDINGS: Portable chest film at 0855 hours. Cardiomegaly and left lower lobe collapse noted as seen on yester day's chest CT. Areas of atelectasis seen in the right lung and left upper lung field as well. Slig ht mediastinal shift to the left noted. IMPRESSION: Findings consistent with cardiomegaly, left lower lobe atelectasis, probably no significant interval change from yesterday's CT examination.
[2019-10-09 09:10] LABS: HCT 58.4 % (40.0-50.0)
[2019-10-09 09:19] LABS: Absolute Basophil Count 0.11 k/cumm (0.0-0.2); Absolute Lymphocyte Count 1.17 k/cumm (1.2-3.4); Absolute Monocyte Count 1.07 k/cumm (0.11-0.7); Atypical Lymphocytes % 4; Nucleated RBC 1 /100WBC
[2019-10-09 09:20] LABS: COVID-19 RT-PCR UVMMC Result Negative (Negative)
[2019-10-09 09:20] LABS: Anisocytosis 2+; Diff Comment Manual Differential; Macrocytosis 2+; Poikilocytes 1+; Polychromasia Present
[2019-10-09 09:28] LABS: TSH (W/Ref FT4) 0.79 uIU/mL (0.36-3.74)
--- NOTE | 2019-10-09 09:42 | INITIAL_ITS ---
- If Service Date Differs Date of service: 10/09/19 Time of Service: 09:42 Care Management Initial Assess REASON FOR HOSPITALIZATION:: Edema, Hypoxia PAST MEDICAL HISTORY/PAST SURGICAL HISTORY:: Basal Cell, Cardiomyopathy, Hydrocephalus, Hyperlipidemia, Myotonic Dystrophy, Paroxysmal atrial fibrillation, right bundle branch block, ruptured eardrum PREVIOUS FUNCTIONAL STATUS/SOCIAL/FAMILY SUPPORTS:: Julio Cesar resides in [place], [place] in a shared living long-term through [facility]. He reports his home provider's name is Teresa. His guardian is Micki Jaylen Márquez and his family preservation caseworker is Alba. Julio Cesar reports he is on disability and does not work. CURRENT FUNCTIONAL STATUS:: Julio Cesar's medical condition changed from morning report to the afternoon. He began having trouble breathing, and became non responsive. CM met with him with Teresa, his caregiver, in the room. She was visibly upset, and spoke a lot about their time together. CM sat with Teresa, supporting her through this difficult time. She stated that just days ago he was doing well, and they were at home playing cards together- one of his favorite past times. CM called his guardian, Micki, who agreed with the MD that he would be on CLOTH DESIZING RANGE TENDER at this time, as he is DNR/DNI, and does not prefer to use Bipap or Cpap. CM also called Alba, his retail service representative from [facility], who is on her way to [facility] to support Teresa. CM will continue to follow and support pt, care team and staff. ADVANCE DIRECTIVES:: COLST on file. Micki Mina is his current guardian. Has patient been provided with information about the portal?: No Did the patient sign up for the portal?: No CODE STATUS:: DNR/DNI INSURANCE COVERAGE / FINANCIAL ISSUES:: ARIEL/ MCR CURRENT HOME/COMMUNITY SERVICES/EQUIPMENT:: [facility] services through [facility]-case management, home provider, guardianship. PRIMARY CARE PHYSICIAN:: Sixto Tracy POTENTIAL DISCHARGE NEEDS:: Follow up appt with PCP PATIENT/FAMILY EDUCATION NEEDS:: Review discharge instructions with pt, caregiver and guardian, discussion of goals of care. ANTICIPATED BARRIERS TO DISCHARGE:: None identified TRANSPORTATION:: Private vehicle with caregiver. PLAN:: Anticipate Julio Cesar will remain at [facility] for end of life care. CM has communicated with Micki, his Teresa leal, his caregiver, and Alba, his retail service representative from [facility]. will continue to support pt, care team and staff.
[2019-10-09 09:48] VITALS: BP 108/59; PULSE 81; RESP 20; TEMP 36.3; O2SAT 83
[2019-10-09 09:55] LABS: Ferritin 14 ng/mL (26-388)
[2019-10-09 09:55] LABS: Procalcitonin 0.9 ng/mL
[2019-10-09 10:34] LABS: D-Dimer 995 ng/mlFEU (<500)
--- NOTE | 2019-10-09 11:10 | PHA.REVIEW ---
Pharmacy Admission Review - Admission Clinical Review (Last Reviewed 10/08/19 @ 17:58 by Jefferson Nolan MD) Edema (Acute) Hypoxia (Acute) Lung consolidation (Acute) promethazine Allergy (Unverified 08/03/19 17:06) MYOTONIC DYSTROPY Benzodiazepines Adverse Reaction (Severe, Unverified 08/03/19 17:06) avoid d/t myotonic dystrophy succinylcholine Adverse Reaction (Severe, Unverified 08/03/19 17:06) avoid d/y myotonic dystrophy narcotics Adverse Reaction (Severe, Uncoded 08/03/19 17:06) avoid d/t myotonic dystrophy Height 5 ft 5.5 in Weight 76 kg - Renal Dosing Renal Dosing: BUN 14 mg/dL (7-18) D 10/09/19 06:20 Creatinine 0.62 mg/dL (0.70-1.30) L 10/09/19 06:20 - Anticoagulation Anticoagulation: Hgb 15.7 g/dL (13.5-17.5) 10/09/19 06:20 Hct 58.4 % (40.0-50.0) H* 10/09/19 06:20 Plt Count 181 x1000/uL (130-400) 10/09/19 06:20 INR 1.0 (0.9-1.1) 10/08/19 17:40 Creatinine 0.62 mg/dL (0.70-1.30) L 10/09/19 06:20 DVT Prohphylaxis: Reviewed Medications: Aspirin - Opiate Usage Evaluate Pain Scale/Pains Meds: N/A - Relevant Labs Sodium 145 mmol/L (136-145) 10/09/19 06:20 Potassium 4.5 mmol/L (3.5-5.1) 10/09/19 06:20 Chloride 106 mmol/L (98-107) 10/09/19 06:20 Magnesium 2.7 mg/dL (1.8-2.4) H 10/09/19 06:20 C-Reactive Protein 2.45 mg/dL (0.0-0.3) H 10/09/19 06:20 - DM Control DM Control: Glucose 104 mg/dL (74-106) 10/09/19 06:20 Insulin Dosing: N/A - Heart Failure/SC Heart Failure/SC: Troponin I < 0.05 ng/Ml (<0.06) 10/09/19 06:20 EF%, IZABELLA's, B-Blockers, Diuretics: N/A - BP Control BP Control: Blood Pressure 108/59 Blood Pressure 119/77 If elevated: Reviewed - Comments Comments/Follow Ups: VANCO + PIP/DEVANTE STARTED ON 10/08
--- NOTE | 2019-10-09 11:38 | W.NUTRFU ---
Date of service: 10/09/19 Time of Service: 11:38 Nutritional Follow up NOTE: 39 year old admittted with chronic hypoxia. PMH: myotonic dystrophy, peripheral edema. Meds include lasix. Labs indicate low values for ferritin, Magnesium, being repleted. Following regular meal plan with adequate intake. Not at risk for nutritional decline at this time. will be available prn. Time Spent in Nutritional Counseling and Treatment: 0 time spent face to face
--- NOTE | 2019-10-09 13:28 | PGE_ITS ---
Date of Service Date of service: 10/09/19 Time of Service: 13:10 Subjective Subjective Interval history since last seen: Was called to patient's bedside because it was felt he was dying by nursing. The patient still has a pulse and has rare respirations. He is not tracking, blinking, or answering questions. He was hypoxic, requiring O2 to be dialed up to 15 L to saturate in mid 80's. Per nursing, prior to this he was cyanotic. He was seen less than 45 minutes prior awake, so this deterioration was felt to be sudden. The patient is pale, appears comfortable, with apneic episodes and very shallow inspiratory effort. He has irregularly irregular rhythm on auscultation and bounding pulses. Extremities are warm. He is DNR/DNI. On his COLST form, there is a box checked for comfort measures. I spoke with patient's reporting process consultant and his guardian, both of whom state that the patient previously hated being on CPAP when he was tried on it. I The patient's guardian felt that we should focus on comfort measures, which in my opinion is appropriate because the patient is dying. He appears to have multifocal PNA. He ruled out for COVID-19. Palliative care consult and a automotive service consultant have arrived to reassure the reporting process consultant. The patient is expected to pass away shortly. Comfort care orders have been placed. Total Critical Care Time 35 minutes. Objective Objective Clinical Data: Abnormal lab results 10/08/19 10/08/19 10/08/19 Range/Units 14:55 14:55 17:40 Hct 57.3 H* (40.0-50.0) % MCV 101.6 H (80-95) fL MCHC 27.4 L (32.0-36.0) g/dL RDW 20.6 H (11.8-14.1) % MPV (8.0-11.0) fL Absolute Neutrophils (1.2-6.7) k/cumm Absolute Lymphocytes 0.99 L (1.2-3.4) k/cumm Absolute Monocytes (0.11-0.7) k/cumm D-Dimer 884 H (<500) ng/mlFEU Carbon Dioxide 37.3 H (21.0-32.0) mmol/L Anion Gap 0.7 L (3-11) mmol/L BUN 21 H (7-18) mg/dL Creatinine (0.70-1.30) mg/dL Glucose 112 H (74-106) mg/dL Magnesium 2.5 H (1.8-2.4) mg/dL Ferritin (26-388) ng/mL C-Reactive Protein (0.0-0.3) mg/dL Albumin 2.8 L (3.4-5.0) g/dL Urine Urobilinogen (Up TO 0.2) EU/dL 10/08/19 10/09/19 10/09/19 Range/Units 18:30 06:20 06:20 Hct (40.0-50.0) % MCV (80-95) fL MCHC (32.0-36.0) g/dL RDW (11.8-14.1) % MPV (8.0-11.0) fL Absolute Neutrophils (1.2-6.7) k/cumm Absolute Lymphocytes (1.2-3.4) k/cumm Absolute Monocytes (0.11-0.7) k/cumm D-Dimer (<500) ng/mlFEU Carbon Dioxide 37.4 H (21.0-32.0) mmol/L Anion Gap 1.6 L (3-11) mmol/L BUN (7-18) mg/dL Creatinine 0.62 L (0.70-1.30) mg/dL Glucose (74-106) mg/dL Magnesium 2.7 H (1.8-2.4) mg/dL Ferritin 14 L (26-388) ng/mL C-Reactive Protein 2.45 H (0.0-0.3) mg/dL Albumin (3.4-5.0) g/dL Urine Urobilinogen 1.0 H (Up TO 0.2) EU/dL 10/09/19 10/09/19 Range/Units 06:20 09:20 Hct 58.4 H* (40.0-50.0) % MCV 103.4 H (80-95) fL MCHC 26.9 L (32.0-36.0) g/dL RDW 20.7 H (11.8-14.1) % MPV 11.4 H (8.0-11.0) fL Absolute Neutrophils 7.90 H (1.2-6.7) k/cumm Absolute Lymphocytes 1.17 L (1.2-3.4) k/cumm Absolute Monocytes 1.07 H (0.11-0.7) k/cumm D-Dimer 995 H (<500) ng/mlFEU Carbon Dioxide (21.0-32.0) mmol/L Anion Gap (3-11) mmol/L BUN (7-18) mg/dL Creatinine (0.70-1.30) mg/dL Glucose (74-106) mg/dL Magnesium (1.8-2.4) mg/dL Ferritin (26-388) ng/mL C-Reactive Protein (0.0-0.3) mg/dL Albumin (3.4-5.0) g/dL Urine Urobilinogen (Up TO 0.2) EU/dL Vital Signs Temperature 36.3 C L 10/09/19 09:48 Temperature Source Tympanic 10/09/19 09:48 Pulse 81 10/09/19 09:48 Pulse Rhythm Regular 10/09/19 09:00 Pulse 86 10/08/19 18:50 Respiratory Rate 20 10/09/19 09:48 Respiratory Effort Non-Labored 10/09/19 09:00 Respiratory Depth Normal 10/09/19 09:00 Respiratory Pattern Normal 10/09/19 09:00 Blood Pressure 108/59 L 10/09/19 09:48 Blood Pressure Mean 94 10/08/19 17:46 Blood Pressure Position Sitting 10/08/19 14:15 Pulse Oximetry 83 L 10/09/19 09:48 Oxygen Delivery Method Nasal Cannula 10/09/19 09:48 Oxygen Flow Rate 4 10/09/19 09:48 Fraction of Inspired Oxygen (FIO2) 80 10/08/19 19:24 Pain Level 0 10/09/19 09:48 Comment 10/09/19 00:51 Intake & Output 10/08/19 10/09/19 10/09/19 23:59 11:59 23:59 Intake Total 1000.000 / 1000.000 240 / 240 Output Total 900 / 900 Balance 100.000 / 100.000 240 / 240 Weight 76 kg Intake: IV 1000.000 / 1000.000 Oral 240 / 240 Output: Urine 900 / 900 Other: Urine Color Pale Yellow Urine Appearance Clear Clear Urine Odor Normal Normal Voiding Methods Toilet Diaper Incontinent Laboratory Results WBC 10.68 k/cumm (4.4-10.8) 10/09/19 06:20 RBC 5.65 m/cumm (4.50-6.00) 10/09/19 06:20 Hgb 15.7 g/dL (13.5-17.5) 10/09/19 06:20 Hct 58.4 % (40.0-50.0) H* 10/09/19 06:20 MCV 103.4 fL (80-95) H 10/09/19 06:20 MCH 27.8 pg (27.0-33.0) 10/09/19 06:20 MCHC 26.9 g/dL (32.0-36.0) L 10/09/19 06:20 RDW 20.7 % (11.8-14.1) H 10/09/19 06:20 Plt Count 181 x1000/uL (130-400) 10/09/19 06:20 MPV 11.4 fL (8.0-11.0) H 10/09/19 06:20 Immature Gran % See Differential 10/09/19 06:20 Neutrophils % 74.0 10/09/19 06:20 Lymphocytes % 7.0 10/09/19 06:20 Atypical Lymphs % 4 10/09/19 06:20 Monocytes % 10.0 10/09/19 06:20 Eosinophils % 0.0 10/09/19 06:20 Basophils % 1.0 10/09/19 06:20 Metamyelocytes % 1.0 % 10/09/19 06:20 Myelocytes % 3.0 % 10/09/19 06:20 Absolute Neutrophils 7.90 k/cumm (1.2-6.7) H 10/09/19 06:20 Absolute Lymphocytes 1.17 k/cumm (1.2-3.4) L 10/09/19 06:20 Absolute Monocytes 1.07 k/cumm (0.11-0.7) H 10/09/19 06:20 Absolute Eosinophils 0.00 k/cumm (0.0-0.7) 10/09/19 06:20 Absolute Basophils 0.11 k/cumm (0.0-0.2) 10/09/19 06:20 Nucleated RBCs 1 /100WBC 10/09/19 06:20 Differential Comment Manual differential 10/09/19 06:20 RBC Morphology See below 10/09/19 06:20 Polychromasia Present 10/09/19 06:20 Hypochromasia 1+ 10/08/19 14:55 Poikilocytosis 1+ 10/09/19 06:20 Anisocytosis 2+ 10/09/19 06:20 Macrocytosis 2+ 10/09/19 06:20 PT 10.3 sec (9.3-11.0) 10/08/19 17:40 INR 1.0 (0.9-1.1) 10/08/19 17:40 APTT 22.3 sec (21.0-31.4) 10/08/19 17:40 D-Dimer 995 ng/mlFEU (<500) H 10/09/19 09:20 Sodium 145 mmol/L (136-145) 10/09/19 06:20 Potassium 4.5 mmol/L (3.5-5.1) 10/09/19 06:20 Chloride 106 mmol/L (98-107) 10/09/19 06:20 Carbon Dioxide 37.4 mmol/L (21.0-32.0) H 10/09/19 06:20 Anion Gap 1.6 mmol/L (3-11) L 10/09/19 06:20 BUN 14 mg/dL (7-18) D 10/09/19 06:20 Creatinine 0.62 mg/dL (0.70-1.30) L 10/09/19 06:20 Estimated GFR/1.73 m2 >= 60.00 (mL/min/1.73m2) 10/09/19 06:20 Glucose 104 mg/dL (74-106) 10/09/19 06:20 Calcium 8.8 mg/dL (8.5-10.1) 10/09/19 06:20 Magnesium 2.7 mg/dL (1.8-2.4) H 10/09/19 06:20 Ferritin 14 ng/mL (26-388) L 10/09/19 06:20 Total Bilirubin 0.3 mg/dL (0.2-1.0) 10/08/19 14:55 AST 30 U/L (15-37) 10/08/19 14:55 ALT 33 U/L (16-63) 10/08/19 14:55 Alkaline Phosphatase 62 U/L (46-116) 10/08/19 14:55 Troponin I < 0.05 ng/Ml (<0.06) 10/09/19 06:20 C-Reactive Protein 2.45 mg/dL (0.0-0.3) H 10/09/19 06:20 Total Protein 7.4 g/dL (6.4-8.2) 10/08/19 14:55 Albumin 2.8 g/dL (3.4-5.0) L 10/08/19 14:55 Procalcitonin 0.9 ng/mL 10/09/19 09:20 TSH 0.79 uIU/mL (0.36-3.74) 10/09/19 06:20 Urine Color Yellow (Yellow) 10/08/19 18:30 Urine Clarity Clear (Clear) 10/08/19 18:30 Urine pH 6.5 (5-8) 10/08/19 18:30 Ur Specific [place] 1.010 (1.005-1.025) 10/08/19 18:30 Urine Protein Negative mg/dL (Negative) 10/08/19 18:30 Urine Ketones Negative mg/dL (Negative) 10/08/19 18:30 Urine Blood Negative (Negative) 10/08/19 18:30 Urine Nitrite Negative (Negative) 10/08/19 18:30 Urine Bilirubin Negative (Negative) 10/08/19 18:30 Urine Urobilinogen 1.0 EU/dL (Up TO 0.2) H 10/08/19 18:30 Ur Leukocyte Esterase Negative (Negative) 10/08/19 18:30 Urine Glucose Negative mg/dL (Negative) 10/08/19 18:30 COVID-19 PCR Negative (Negative) 10/08/19 17:40 Nasopharyn COVID-19 PCR Not Applicable 10/08/19 17:40 Ref Test Perform Site [facility] lab 10/08/19 17:40
[2019-10-09] MEDS: Normal Saline Flush 10 ML SYR IVP (13:58)
--- NOTE | 2019-10-09 14:46 | CHAPLAIN ---
I received a call from Med/Surg this afternoon letting me know that Julio Cesar's condition had changed quickly and that he was now actively dying. His caregiver, Teresa, is with him. Julio Cesar has lived with Teresa for more than 20 years and they seem to have a close, loving relationship. Teresa is struggling to deal with the quick change in Julio Cesar's condition. Julio Cesar is not responsive at this point and is receiving comfort care. Dr. Samuels has been in touch with Julio Cesar's guardian. Teresa plans to stay here with Julio Cesar. I will continue to visit.
--- NOTE | 2019-10-09 14:57 | W.PALLCONSUL ---
Date of service: 10/09/19 Time of Service: 13:10 History of Present Illness Narrative: Julio Cesar Mcfarland is a 39 year old man with a past medical history significant for myotonic dystrophy with cardiomyopathy, PAF, hx of DIESEL MECHANIC shunt placement, restrictive lung disease, hearing loss, and small bowel obstruction who has lived with a caregiver for over 20 years at an adult family assisted. He presented to the ED with his caregiver, Teresa, last evening with reports of RLE edema. He was noted to be hypoxic. He was ruled out for DVT or PE. However, his CT chest was notable for atelectatic collapse of the left lower lobe, moderate consolidation of the left upper lobe, subsegmental consolidation in the right middle and right lower lobes. He was admitted and ruled out for COVID-19. Of note, he had a COLST form and was a DNR/DNI and the COLST also indicated that he would want care directed toward comfort. A Palliative consult was placed. However, prior to the consult taking place, he was noted to have a change in his condition. He became severely hypoxic and unresponsive. He was reported by nursing to be cyanotic. He was seen by the hospitalist, Dr. Samuels, who spoke with his guardian. His guardian felt that his care should be directed toward comfort, which is in agreement with his wishes per the COLST form. His caregiver, Teresa, is present with the patient, talking to him and holding his hand. He remains completely unresponsive and is experiencing periods of apnea. He was initially placed on 15 liters of oxygen via mask, however, this is being weaned. His caregiver is sharing stories from the years that they spent together. Chaplain Andree is also present. He appears to be actively dying. Consults Consult date: 10/09/19 Assessment and Plan Assessment and plan (1) Lung consolidation: Status: Acute (2) Restrictive lung disease: Status: Acute (3) Edema: Status: Acute (4) Hypoxia: Status: Acute (5) Myotonic dystrophy: Status: Chronic (6) Cardiomyopathy: Status: Chronic (7) Palliative care patient: Status: Acute Assessment and plan: With what appears to be a multifocal pneumonia. Julio Cesar appears to be actively dying. He has been transitioned to FIELD TRAFFIC INVESTIGATOR by the hospitalist, Dr. Samuels. This is in line with his goals of care. He has a COLST which states he is a DNR/DNI and would want care directed towards his comfort. He is currently being weaned off of oxygen, he has received morphine as he was moaning and has irregular respirations. He stay in the hospital and be kept comfortable at the end of his life. It is expected that he will pass away shortly after the oxygen is weaned off. Review of Systems Unobtainable due to mental status [facility] Medical History BASAL CELL Cardiomyopathy (Chronic) a. EF 50%, mild global hypokinesis on echo Cardiomyopathy First degree AV block (Chronic) Gallstones (Acute) HYDROCEPHALUS Hyperlipidemia Myotonic dystrophy (Chronic) MYOTONIC DYSTROPHY Paroxysmal atrial fibrillation Restrictive lung disease (Acute) Right bundle branch block (Chronic) Right bundle branch block RUPTURED EARDRUM Small bowel obstruction (Acute) velopalatine insufficiency (Chronic) DIESEL MECHANIC (ventriculoperitoneal) shunt status (Acute) Social History Smoking/Tobacco Use Status: Never Alcohol Intake: never Drug use: Never Substance use type: does not use Do you feel safe at home: Yes Do you feel safe in your relationship?: Yes Exam Narrative Exam Narrative: General: unresponsive, skin is pale, cool to touch, fingers are cyanotic. HEENT: several scars on his scalp from previous surgeries. His eyes are open, not blinking or tracking. Neck: +JVD, bounding pulse Cardiovascular: irregular HR, tachycardic. Respiratory: irregular respirations with apnea. Wheezing throughout left lung field. GI: abdomen round, hypoactive bowel sounds. Extremities: cool and pale, fingers cyanotic, edema to BLEs R>L, faint pedal pulses bilaterally. Results Last Vital Signs Temp 36.3 C L 10/09/19 09:48 Pulse 81 10/09/19 09:48 Resp 20 10/09/19 09:48 BP 108/59 L 10/09/19 09:48 Pulse Ox 83 L 10/09/19 09:48 Labs Result diagrams: 10/09/19 06:20 10/09/19 06:20 Labs: Laboratory Results - last 24 hr 10/08/19 10/08/19 10/08/19 14:55 14:55 14:55 WBC 8.28 RBC 5.64 Hgb 15.7 Hct 57.3 H* MCV 101.6 H MCH 27.8 MCHC 27.4 L RDW 20.6 H Plt Count 185 MPV 10.7 Immature Gran % See Differential Neutrophils % 79.0 Lymphocytes % 12.0 Atypical Lymphs % Monocytes % 8.0 Eosinophils % 0.0 Basophils % 0.0 Metamyelocytes % 1.0 Myelocytes % Absolute Neutrophils 6.54 Absolute Lymphocytes 0.99 L Absolute Monocytes 0.66 Absolute Eosinophils 0.00 Absolute Basophils 0.00 Nucleated RBCs 2 Differential Comment Manual differential RBC Morphology See below Polychromasia Present Hypochromasia 1+ Poikilocytosis 1+ Anisocytosis 2+ Macrocytosis 1+ PT Cancelled INR Cancelled APTT Cancelled D-Dimer Cancelled Sodium 145 Potassium 4.0 Chloride 107 Carbon Dioxide 37.3 H Anion Gap 0.7 L BUN 21 H Creatinine 0.84 Estimated GFR/1.73 m2 >= 60.00 Glucose 112 H Calcium 8.9 Magnesium 2.5 H Ferritin Total Bilirubin 0.3 AST 30 ALT 33 Alkaline Phosphatase 62 Troponin I 0.07 C-Reactive Protein Total Protein 7.4 Albumin 2.8 L Procalcitonin TSH Urine Color Urine Clarity Urine pH Ur Specific Rosanky Urine Protein Urine Ketones Urine Blood Urine Nitrite Urine Bilirubin Urine Urobilinogen Ur Leukocyte Esterase Urine Glucose COVID-19 PCR Nasopharyn COVID-19 PCR Ref Test Perform Site 10/08/19 10/08/19 10/08/19 17:40 17:40 18:17 WBC RBC Hgb Hct MCV MCH MCHC RDW Plt Count MPV Immature Gran % Neutrophils % Lymphocytes % Atypical Lymphs % Monocytes % Eosinophils % Basophils % Metamyelocytes % Myelocytes % Absolute Neutrophils Absolute Lymphocytes Absolute Monocytes Absolute Eosinophils Absolute Basophils Nucleated RBCs Differential Comment RBC Morphology Polychromasia Hypochromasia Poikilocytosis Anisocytosis Macrocytosis PT 10.3 INR 1.0 APTT 22.3 D-Dimer 884 H Sodium Potassium Chloride Carbon Dioxide Anion Gap BUN Creatinine Estimated GFR/1.73 m2 Glucose Calcium Magnesium Ferritin Total Bilirubin AST ALT Alkaline Phosphatase Troponin I Cancelled C-Reactive Protein Total Protein Albumin Procalcitonin TSH Urine Color Urine Clarity Urine pH Ur Specific Ros[place]y Urine Protein Urine Ketones Urine Blood Urine Nitrite Urine Bilirubin Urine Urobilinogen Ur Leukocyte Esterase Urine Glucose COVID-19 PCR Negative Nasopharyn COVID-19 PCR Not Applicable Ref Test Perform Site [facility] hospital lab 10/08/19 10/08/19 10/09/19 18:30 18:30 06:20 WBC RBC Hgb Hct MCV MCH MCHC RDW Plt Count MPV Immature Gran % Neutrophils % Lymphocytes % Atypical Lymphs % Monocytes % Eosinophils % Basophils % Metamyelocytes % Myelocytes % Absolute Neutrophils Absolute Lymphocytes Absolute Monocytes Absolute Eosinophils Absolute Basophils Nucleated RBCs Differential Comment RBC Morphology Polychromasia Hypochromasia Poikilocytosis Anisocytosis Macrocytosis PT INR APTT D-Dimer Sodium Potassium Chloride Carbon Dioxide Anion Gap BUN Creatinine Estimated GFR/1.73 m2 Glucose Calcium Magnesium Ferritin Total Bilirubin AST ALT Alkaline Phosphatase Troponin I 0.07 < 0.05 C-Reactive Protein Total Protein Albumin Procalcitonin TSH Urine Color Yellow Urine Clarity Clear Urine pH 6.5 Ur Specific Ros[place]y 1.010 Urine Protein Negative Urine Ketones Negative Urine Blood Negative Urine Nitrite Negative Urine Bilirubin Negative Urine Urobilinogen 1.0 H Ur Leukocyte Esterase Negative Urine Glucose Negative COVID-19 PCR Nasopharyn COVID-19 PCR Ref Test Perform Site 10/09/19 10/09/19 10/09/19 06:20 06:20 06:20 WBC 10.68 RBC 5.65 Hgb 15.7 Hct 58.4 H* MCV 103.4 H MCH 27.8 MCHC 26.9 L RDW 20.7 H Plt Count 181 MPV 11.4 H Immature Gran % See Differential Neutrophils % 74.0 Lymphocytes % 7.0 Atypical Lymphs % 4 Monocytes % 10.0 Eosinophils % 0.0 Basophils % 1.0 Metamyelocytes % 1.0 Myelocytes % 3.0 Absolute Neutrophils 7.90 H Absolute Lymphocytes 1.17 L Absolute Monocytes 1.07 H Absolute Eosinophils 0.00 Absolute Basophils 0.11 Nucleated RBCs 1 Differential Comment Manual differential RBC Morphology See below Polychromasia Present Hypochromasia Poikilocytosis 1+ Anisocytosis 2+ Macrocytosis 2+ PT INR APTT D-Dimer Sodium 145 Potassium 4.5 Chloride 106 Carbon Dioxide 37.4 H Anion Gap 1.6 L BUN 14 D Creatinine 0.62 L Estimated GFR/1.73 m2 >= 60.00 Glucose 104 Calcium 8.8 Magnesium 2.7 H Ferritin 14 L Total Bilirubin AST ALT Alkaline Phosphatase Troponin I C-Reactive Protein 2.45 H Total Protein Albumin Procalcitonin TSH Urine Color Urine Clarity Urine pH Ur Specific Ros[place]y Urine Protein Urine Ketones Urine Blood Urine Nitrite Urine Bilirubin Urine Urobilinogen Ur Leukocyte Esterase Urine Glucose COVID-19 PCR Nasopharyn COVID-19 PCR Ref Test Perform Site 10/09/19 10/09/19 10/09/19 06:20 09:20 09:20 WBC RBC Hgb Hct MCV MCH MCHC RDW Plt Count MPV Immature Gran % Neutrophils % Lymphocytes % Atypical Lymphs % Monocytes % Eosinophils % Basophils % Metamyelocytes % Myelocytes % Absolute Neutrophils Absolute Lymphocytes Absolute Monocytes Absolute Eosinophils Absolute Basophils Nucleated RBCs Differential Comment RBC Morphology Polychromasia Hypochromasia Poikilocytosis Anisocytosis Macrocytosis PT INR APTT D-Dimer 995 H Sodium Potassium Chloride Carbon Dioxide Anion Gap BUN Creatinine Estimated GFR/1.73 m2 Glucose Calcium Magnesium Ferritin Total Bilirubin AST ALT Alkaline Phosphatase Troponin I C-Reactive Protein Total Protein Albumin Procalcitonin 0.9 TSH 0.79 Urine Color Urine Clarity Urine pH Ur Specific Ros[place]y Urine Protein Urine Ketones Urine Blood Urine Nitrite Urine Bilirubin Urine Urobilinogen Ur Leukocyte Esterase Urine Glucose COVID-19 PCR Nasopharyn COVID-19 PCR Ref Test Perform Site
--- NOTE | 2019-10-09 19:04 | W.PM.DDS ---
Date of service: 10/09/19 Time of Service: 19:04 Discharge Sum: Prov Provider Consults: 10/09/19 09:32 Palliative Care Consult [CONS] Routine Consultation Status:: Follow-up needed Clarification:: Manage/follow per spec. Reason for consult:: acute on chronic hypoxic resp. failure, patient noncompliant with O2. Discuss goals of care 10/09/19 13:16 Central Lab Technician Consult [CONS] Routine Consultation Status:: Contact made by MD Clarification:: Manage/follow per spec. Reason for consult:: patient is dying Discharge Sum: Diag Contributing Factors (1) Lung consolidation: (2) Restrictive lung disease: (3) Edema: (4) Hypoxia: (5) Myotonic dystrophy: (6) Cardiomyopathy: (7) Palliative care patient: Discharge Sum: Summary Date and Time Admission Date: 10/07/2004/13/20 18:11 Date of : 10/09/19 Time of : 18:45 Additional Data Confirmation of as documented by pronouncing clinician: no pulse, no respirations and no heart sounds Family: at bedside Attending/PCP notified?: No Was code activated?: No Autopsy requested?: No claim examiner notified?: No Organ bank notified?: Yes Advance directives: Yes Hospice patient?: No
== END 2019-10-09 18:50 | disposition expired | DRG 947 ==
LOC: ER 19:05 → MS 19:07
PROVIDERS: Admitting Provider General Practice; Emergency Provider Emergency Medicine; PCP Family Medicine; Visit Provider Internal Medicine
DX: R60.9 Edema, unspecified (principal); J18.8 Other pneumonia, unspecified organism; J98.11 Atelectasis; I42.9 Cardiomyopathy, unspecified; I31.3 Pericardial effusion (noninflammatory); R09.02 Hypoxemia; G71.11 Myotonic muscular dystrophy; J98.4 Other disorders of lung; Z51.5 Encounter for palliative care; Z66 Do not resuscitate
CPT/HCPCS: 36410; 36415; 36416; 71275; 75635; 80048; 80053; 82962; 84145; 87040; 93005; 96360; 96361; 99222; 99238; 99255; 99285; 99291; U0003; 71045; 81003; 82728; 83735; 84443; 84484; 85025; 85379; 85610; 85730; 86140; 93010; 93971; J1941; J3370; J3490